=== PATIENT | female | born 1965 | race Caucasian/White ===

== ENCOUNTER 2019-09-01 18:12 | Inpatient (IN) | payer MEDICARE, MEDICAID ==
[2019-09-01 22:26] VITALS: BP 145/83
[2019-09-01] MEDS ORDERED: Magnesium Hydroxide (MOM) 30 mL UDC PO PRN (22:48)
[2019-09-01] MEDS ORDERED: Maalox 30 mL Cup PO PRN (22:48)
[2019-09-01] MEDS ORDERED: Guaifenesin/Dextromethorphan 100mg-10mg/5mL Sugar Free 118mL Bottle PO PRN (23:49)
[2019-09-01] MEDS ORDERED: Promethazine DM 6.25/15mg-5mL 5 ML SYR PO PRN (23:49)
[2019-09-02] MEDS: Multivitamin Tab PO SCH (08:23)
[2019-09-02] MEDS: Pantoprazole 40 mg EC Tab PO SCH (08:23)
--- NOTE | 2019-09-02 11:02 | History and Physical ---
History of Present Illness - HPI Chief Complaint: 53 y/o female patient was brought into ER for medical clearance. HPI: 53 y/o female patient was admitted in [facility] for medical clearance. Patient complains of having severe pain of lower back and buttocks after recent fall onto cement. Patient has history of Hypertension and Mentally disability. Patient had an ER consult and a complete workup was done. Chest x-ray was performed which showed Cardiomegaly. Patient was cleared for admission to [facility]. Patient was diagnosed with S/p fall, Severe lower back pain, Buttock pain, Cardiomegaly, Mentally challenged and history of Hypertension. Patient will have a Psych consult. I will also follow, treat and monitor patient. Patient will continue current treatment plan as ordered. Vital Signs: Last Vital Signs Temp 97.8 F 09/02/19 05:34 Pulse 91 09/02/19 05:34 Resp 20 09/02/19 05:34 BP 132/72 09/02/19 05:34 Pulse Ox 93 09/02/19 05:34 Past Medical History Cardiovascular: Report: HTN Pulmonary: Report: No Pertinent Hx RECREATION SUPERVISOR: Report: No Pertinent Hx GI: Report: No Pertinent Hx Psych: Report: Other (Mentally challenged.) Musculoskeletal: Report: Low Back Pain Rheumatologic: Report: No pertinent Hx Infectious Disease: Report: No Pertinent Hx Renal/: Report: No Pertinent Hx Endocrine: Report: No Pertinent Hx. Denies: Hyperparathyroidism Dermatology: Report: No Pertinent Hx - Past Surgical History Past Surgical History: No pertinent Hx Family Medical History - Family Member Mother History Unknown: Yes Ethnicity: Unknown Living Status: Unknown Hx Family Cancer: (unknown) Hx Family Coronary Artery Disease: (unknown) Hx Family Congestive Heart Failure: (unknown) Hx Family Hypertension: ([place]) Hx Family Stroke: (unknown) Hx Family Diabetes: (unknown) Hx Family Seizures: (unknown) Hx Family Dementia: (unknown) Hx Family AIDS: (unknown) Hx Family HIV: No Social History Smoke: No Alcohol: None Drugs: None Lives: Correction Domestic Violence: Negative Health Maintenance Health Maintenance: Other (please see chart.) - Medications Home Medications: Home Medication Medication Instructions Recorded Type Albuterol [Ventolin] 90 mcg INH Q4HR PRN 09/01/19 History Docusate Sodium [Stool Softener] 250 mg PO BID 09/01/19 History Guaifenesin/Dextromethorphan 10 ml PO Q4HR PRN 09/01/19 History [Robafen Dm Cough Liquid] Ibuprofen 600 mg PO TID PRN 09/01/19 History Loperamide [Imodium] 2 mg PO TID 09/01/19 History Loratadine 10 mg PO DAILY 09/01/19 History Ondansetron [Ondansetron Odt] 8 mg PO Q6H PRN 09/01/19 History Oxybutynin Chloride [Ditropan*] 5 mg PO BID 09/01/19 History Pantoprazole Sodium 40 mg PO DAILY 09/01/19 History Prochlorperazine Maleate 5 mg PO TID PRN 09/01/19 History Promethazine DM 6.25/15mg-5mL 5 ml PO QID PRN 09/01/19 History [Phenergan DM 6.25/15mg-5 mL] Pseudoephedrine HCl [Sudogest] 630 mg PO TID PRN 09/01/19 History QUEtiapine Fumarate [SEROquel] 200 mg PO BID 09/01/19 History Sertraline HCl [Zoloft] 100 mg PO DAILY 09/01/19 History Simvastatin [Zocor*] 20 mg PO QPM 09/01/19 History Umeclidinium Brm/Vilanterol Tr 1 puff IH DAILY 09/01/19 History [Anoro Ellipta 62.5-25 Mcg INH] traZODone HCl [Desyrel*] 50 mg PO HS 09/01/19 History Other Medications: Patient complains of severe lower back pain and buttock pain. - Allergies Allergies/Adverse Reactions: Allergies Allergy/AdvReac Type Severity Reaction Status Date / Time No Known Allergies Allergy Verified 09/01/19 22:25 Review of Systems - Review of Systems Review of Systems: Patient is mentally challenged. Constitutional: Report: No Significant Eyes: Report: No Significant ENT: Report: No Significant Respiratory: Report: No Significant Cardiovascular: Report: No Significant Gastrointestinal: Report: No Significant Genitourinary: Report: No Significant Musculoskeletal: Report: Back Pain Skin: Report: No Significant Neurological: Report: Confusion Physical Exam - Physical Exam HEENT: Report: Ears Nose Throat within normal limits Neck: Report: Within normal limits Cardiovascular Systems: Report: +s1/s2 noted Respiratory: Report: Breath Sounds are within normal limits Abdomen: Report: Non-tender to palpation Back: Report: Other Extremities: Report: Non-tender to palpation. Skin: Report: Color of skin is within normal limits Neuro/Psych: Report: Depressed affect - Lab Results All Lab Results last 24 hours: Please see orders. - Assessment Assessment: Mentally challenged. S/p fall. Severe Lower back pain. Buttock pain. Cardiomegaly. History of Hypertension. - Plan Plan: Continuation of care. Psych consult requested. Monitor vitals, Labs, X-rays. Continue present meds as directed. Monitor diet/nutritional support. Supportive care. Pain management. Fall precaution. Continue current treatment plan as ordered.
[2019-09-02] MEDS ORDERED: Albuterol Nebulizer 2.5mg/3mL HHN PRN (14:57)
--- NOTE | 2019-09-02 16:02 | History & Physical ---
ADMIT DATE: 09/02/2019 CHIEF COMPLAINT: Transferred from [facility] for Geropsych admission. HISTORY OF PRESENT ILLNESS: This is a 53-year-old female who was medically cleared at [facility], who is brought in here to the Geropsych Unit due to compulsiveness and hallucination. PAST MEDICAL HISTORY: Asthma, hyperlipidemia. ALLERGIES: No drug allergies. HOME MEDICATIONS: See medication list. SOCIAL HISTORY: Denies any alcohol, illicit drug usage. REVIEW OF SYSTEMS: GENERAL: Denies any fever or chills. CARDIOVASCULAR: Denies chest pain. RESPIRATORY: Denies shortness of breath. GASTROINTESTINAL: Denies nausea, vomiting, abdominal pain. GENITOURINARY: Denies increased frequency. NEUROLOGIC: Denies seizures or syncope. All systems reviewed and negative. PHYSICAL EXAMINATION: EXTREMITIES: The patient is well-developed, well-nourished, in no apparent distress. VITAL SIGNS: Temperature 97.8, heart rate 91, blood pressure 132/72, respirations 20, O2 is ____. HEENT: Head normocephalic, atraumatic. NECK: Supple. No mass. LUNGS: Clear bilaterally. HEART: Regular rate and rhythm. ABDOMEN: Soft, nontender. ASSESSMENT: Asthma, hyperlipidemia, schizoaffective disorder, obsessive-compulsive disorder, depression. PLAN: We will continue the patient's home medications. Fall precautions have been initiated. We will continue to monitor this patient. JOB# [id number]
--- NOTE | 2019-09-03 05:28 | Psychiatric Evaluation ---
DATE OF SERVICE: 09/01/2019 IDENTIFYING DATA: The patient is a 53-year-old woman, resident [facility]. Information obtained by directly interviewing the patient as well as reviewing the admission papers. JUSTIFICATION FOR HOSPITALIZATION: The patient is admitted here on a voluntary basis in view of her acute agitation and aggressive behavior. The patient is reported to have been very defiant and has been defecating on the floor and has been becoming difficult for her to be redirected. The patient has been admitted over here for stabilization. Prior to the hospitalization, the patient is reported to have been on the following medications, the patient has been getting the trazodone 50 mg at bedtime, sertraline 100 mg in the morning and Seroquel 200 mg b.i.d., even with all the medications the patient has been having difficult time. The patient during the interview has been cooperative, but is not able to provide much information. The patient appears to be intellectually challenged. PAST PSYCHIATRIC HISTORY: Details are not known. MEDICAL HISTORY: Physical examination is requested by Dr. Phillips. SUBSTANCE ABUSE HISTORY: None. PHYSICAL OR SEXUAL ABUSE HISTORY: None. LEGAL PROBLEMS: None at this time. STRENGTH AND ASSETS: The patient is motivated. MENTAL STATUS EXAMINATION: The patient is a 53-year-old moderately obese, superficially cooperative. Eye contact is fleeting. Mood is noted to be irritable. Affect is constricted. The patient has paranoia, but denies any command hallucinations. Insight and judgment at this time are noted to be very much impaired. Impulse control is noted to be limited. The patient is reported to have been presenting with aggressive behavior. Attention span and concentration are noted to be fair at this time. Short term memory is noted to be poor. Long-term memory seems to be fair. The patient appears to be of below average intelligence. The patient's answers most of the time are concrete. The patient is very impulsive and behavior is a danger to others and self in view of her aggressive behavior. DIAGNOSTIC IMPRESSION: AXIS I: ____ unspecified psychosis, not due to substance abuse or physiological condition. AXIS II: None. AXIS III: As per Dr. Phillips. IMMEDIATE TREATMENT PLAN: The patient is going to be continued on her medications and closely monitored. ____ reported individual and family counseling. Once stabilized, the patient is going to be discharged to [facility] to be followed up on an outpatient basis. [facility]# [id number]
[2019-09-03] MEDS: Pantoprazole 40 mg EC Tab PO SCH (08:32)
[2019-09-03] MEDS: Multivitamin Tab PO SCH (08:34)
--- NOTE | 2019-09-03 10:38 | Progress Notes ---
DATE: 09/03/2019 SUBJECTIVE: The patient was seen in her room. The patient is eating breakfast, appears to be guarded, easily gets frustrated, episodes of agitation and aggressive behavior, otherwise the patient is in no acute distress. OBJECTIVE: VITAL SIGNS: Temperature 97.4, heart rate 70, blood pressure 132/65, respirations 20, 95% on room air. HEENT: Head is atraumatic and normocephalic. Eyes; bilateral conjunctivae are clear. Bilateral pupils are equally round and reactive. NECK: Supple. No JVD. CARDIOVASCULAR: S1 and S2, without murmur. PULMONARY: Clear to auscultation. GASTROINTESTINAL: Soft and nontender without guarding. Positive bowel sounds. MUSCULOSKELETAL: No clubbing. No cyanosis noted. ASSESSMENT: 1. Psychosis. 2. Hyperlipidemia. 3. Asthma. PLAN: We will continue to keep the patient to inpatient psychiatric unit. We will follow up with a psychiatrist to monitor the patient's condition and behavior. We will put the patient for precaution. Treatment plans were discussed with the patient's nurse. Treatment plans were discussed with Dr. Phillips. JOB# [id number]
--- NOTE | 2019-09-03 15:44 | Internal Medicine Prog Note ---
Internal Medicine Subjective - Subjective Service Date: 09/03/19 Patient seen and examined:: with staff Patient is:: awake, verbal, agitated, confused Patient Complaints of:: other (Mentally challenged.) Per staff patient has:: no adverse event, no episodes of fall Internal Medicine Objective - Physical Exam Vitals and I&O: Vital Signs Temp 97.9 F 09/03/19 14:00 Pulse 106 09/03/19 14:00 Resp 18 09/03/19 14:00 BP 122/82 09/03/19 14:00 Pulse Ox 95 09/03/19 14:00 Intake & Output 09/02/19 09/03/19 09/03/19 18:59 06:59 18:59 Intake Total 1000 240 Balance 1000 240 Intake: Oral 1000 240 Other: # Voids 4 2 # Bowel Movements 2 2 Stool Characteristics Soft Soft Active Medications: Current Medications Acetaminophen (Tylenol) 650 mg PO Q4HR PRN PRN Reason: Mild Pain (Scale 1-3) Stop: 10/31/19 22:47 Acetaminophen (Tylenol) 650 mg PO Q4H PRN PRN Reason: TEMP ABOVE 100 Stop: 11/01/19 09:21 Al Hydrox/Mg Hydrox/Simethicone (Maalox) 30 ml PO Q4HR PRN PRN Reason: GI DISTRESS Stop: 10/31/19 22:47 Albuterol Sulfate (Albuterol 2.5mg/3ml Neb Ud) 2.5 mg HHN Q4H PRN PRN Reason: Wheezing Stop: 11/01/19 14:56 Docusate Sodium (Colace) 250 mg PO BID [facility] Stop: 11/01/19 08:59 Last Admin: 09/03/19 08:32 Dose: 250 mg Guaifenesin/Dextromethorphan (Diabetic Tussin Dm Sugar Free) 10 ml PO Q4HR PRN PRN Reason: Congestion Stop: 10/31/19 23:48 Ibuprofen (Motrin) 600 mg PO TID PRN PRN Reason: BODY ACHES AND HEADACHES Stop: 10/31/19 22:59 Last Admin: 09/03/19 08:34 Dose: 600 mg Loperamide HCl (Imodium) 2 mg PO TID PRN PRN Reason: diarrhea Stop: 11/01/19 05:30 Loratadine (Claritin) 10 mg PO DAILY [facility] Stop: 11/01/19 08:59 Last Admin: 09/03/19 08:36 Dose: 10 mg Lorazepam (Ativan) 0.5 mg PO Q4HR PRN; Protocol PRN Reason: Anxiety Stop: 10/01/19 22:47 Magnesium Hydroxide (Milk Of Magnesia) 30 ml PO HS PRN PRN Reason: Constipation Multivitamins/Vitamin C (Theragran) 1 tab PO DAILY [facility]I Stop: 11/01/19 08:59 Last Admin: 09/03/19 08:34 Dose: 1 tab Ondansetron HCl (Zofran Odt) 8 mg PO Q6H PRN PRN Reason: IF COMPAZINE INEFFECTIVE Oxybutynin Chloride (Ditropan) 5 mg PO BID [facility] Stop: 11/01/19 08:59 Last Admin: 09/03/19 08:34 Dose: 5 mg Pantoprazole Sodium (Protonix) 40 mg PO QDAC [facility] Stop: 11/01/19 07:29 Last Admin: 09/03/19 08:32 Dose: 40 mg Prochlorperazine Maleate (Compazine) 5 mg PO TID PRN PRN Reason: Nausea / Vomiting Promethazine HCl/Dextromethorphan (Phenergan Dm 6.25/15mg-5 Ml) 5 ml PO QID PRN PRN Reason: Cough Stop: 10/31/19 23:48 Pseudoephedrine HCl (Sudafed) 30 mg PO TID PRN PRN Reason: Cold Symptons (nasal congest.) Quetiapine Fumarate (Seroquel) 200 mg PO BID Y[facility]I; Protocol Stop: 11/01/19 08:59 Last Admin: 09/03/19 11:29 Dose: Not Given Simvastatin (Zocor) 20 mg PO QPM Y[facility]I; Protocol Stop: 11/01/19 16:59 Last Admin: 09/02/19 16:22 Dose: 20 mg Trazodone HCl (Desyrel) 50 mg PO HS Y[facility]INI; Protocol Stop: 11/01/19 20:59 Zolpidem Tartrate (Ambien) 5 mg PO HS PRN PRN Reason: Insomnia Stop: 10/31/19 22:47 Physical Exam: Patient is awake, easily frustrated, irritable, has obsessive-compulsive behavior. General: demented HEENT: NC/AT, PERRLA Neck: Supple Lungs: CTAB Cardiovascular: RRR, Normal S1 Abdomen: soft, non-tender Extremities: clear Neurological: no change, disorganized Internal Medicine Assmt/Plan - Assessment Assessment: Mentally challenged. S/p fall. Severe Lower back pain. Buttock pain. Cardiomegaly. History of Hypertension. - Plan Plan: Continuation of care. Psych consult requested. Monitor vitals, Labs, X-rays. Continue present meds as directed. Monitor diet/nutritional support. Supportive care. Pain management. Fall precaution. Continue current treatment plan as ordered. Nutritional Asmnt/Malnutr-PDOC - Dietary Evaluation Malnutrition Findings (Please click <Entered> for more info): Nutritional Asmnt/Malnutrition Start: 09/03/19 12: 44 Text: Status: Complete Freq: Protocol: Document 09/03/19 12:44 [email or web address] (Rec: 09/03/19 13:11 [email or web address]- [id number]) Nutritional Asmnt/Malnutrition Patient General Information Nutritional Screening Moderate Risk Diagnosis Psychosis Pertinent Medical Hx/Surgical Hx Asthma, hyperlipidemia Subjective Information Patient in dining room at time of visit. Tolerating current diet order with adequate intake. Current Diet Order/ Nutrition Support Cardiac, Chopped Patient / S.O Not Indicated Pertinent Medications maalox, colace, imodium, MOM, Theragran, zofran, protonix, phenergan Pertinent Labs (09/01) albumin 3.5 Nutritional Hx/Data Height 1.6 m Height (Calculated Centimeters) 160.0 Current Weight (lbs) 84.822 kg Weight (Calculated Kilograms) 84.8 Weight (Calculated Grams) 07635.8 [place] Body Weight 115 % [place] Body Weight 162 Body Mass Index (BMI) 33.1 Recent Weight Change No Weight Status Obese GI Symptoms GI Symptoms None Last BM 09/03x 2 Difficult in: None Food Allergies No Cultural/Ethnic/Judaism Belief none indicated Usual diet at home unknown Skin Integrity/Comment: Chris 16, superficial laceration.lateral scratches to lower back. Current %PO Good (75-100%) Estimated Nutritional Goals BEE in Kcals: Adj wt of IBW Calories/Kcals/Kg 60.4kg 25-30 kcal/kg Kcals Calculated ~1776-9717 kcal/day Protein: Adj wt of IBW Protein g/kg: (1gm/kg) Protein Calculated ~60 gm/day Fluid: ml ~7921-1300 ml/day (1 ml/kcal) Nutritional Problem No current Nutrition Prob Problem No nutrition diagnosis at this time Intervention/Recommendation Comments 1. Continue Cardiac chopped diet as tolerated by patient. Expected Outcomes/Goals Expected Outcomes/Goals Oral intake >75% ofmeals, weight stable, nutrition related labs WNL F/U LR 09/10-
--- NOTE | 2019-09-03 23:22 | Progress Notes ---
DATE: 09/03/2019 PSYCHIATRIC PROGRESS NOTE SUBJECTIVE: Staff was spoken to. The patient is interviewed. Mood is noted to be irritable. Affect is constricted. The patient is screaming and yelling, not making much sense. The patient has been closely monitored at this time and the patient has been on Seroquel 400 mg a day and the patient has been able to tolerate the medications. No other side effects to the medications are noted. However, the patient is very demanding and when she does not get her way, she is screaming and yelling. The patient has paranoid delusions, but no command hallucinations are noted. ASSESSMENT: The patient is still psychotic. PLAN: To continue the patient with the Seroquel and followup. JOB# [id number]
[2019-09-04] MEDS: Multivitamin Tab PO SCH (08:13)
[2019-09-04] MEDS: Pantoprazole 40 mg EC Tab PO SCH (08:13)
--- NOTE | 2019-09-04 13:39 | Internal Medicine Prog Note ---
Internal Medicine Subjective - Subjective Service Date: 09/04/19 Patient seen and examined:: with staff Patient is:: awake, verbal, agitated, confused Patient Complaints of:: other (Mentally challenged.) Per staff patient has:: no adverse event, no episodes of fall Internal Medicine Objective - Physical Exam Vitals and I&O: Vital Signs Temp 97.7 F 09/04/19 06:56 Pulse 92 09/04/19 06:56 Resp 18 09/04/19 06:56 BP 129/63 09/04/19 06:56 Pulse Ox 98 09/04/19 06:56 Intake & Output 09/03/19 09/04/19 09/04/19 18:59 06:59 18:59 Intake Total 1300 120 Balance 1300 120 Intake: Oral 1300 120 Other: # Voids 3 1 # Bowel Movements 1 0 Stool Characteristics Soft Soft Soft Active Medications: Current Medications Acetaminophen (Tylenol) 650 mg PO Q4HR PRN PRN Reason: Mild Pain (Scale 1-3) Stop: 10/31/19 22:47 Acetaminophen (Tylenol) 650 mg PO Q4H PRN PRN Reason: TEMP ABOVE 100 Stop: 11/01/19 09:21 Al Hydrox/Mg Hydrox/Simethicone (Maalox) 30 ml PO Q4HR PRN PRN Reason: GI DISTRESS Stop: 10/31/19 22:47 Albuterol Sulfate (Albuterol 2.5mg/3ml Neb Ud) 2.5 mg HHN Q4H PRN PRN Reason: Wheezing Stop: 11/01/19 14:56 Docusate Sodium (Colace) 250 mg PO BID [facility] Stop: 11/01/19 08:59 Last Admin: 09/04/19 08:12 Dose: 250 mg Guaifenesin/Dextromethorphan (Diabetic Tussin Dm Sugar Free) 10 ml PO Q4HR PRN PRN Reason: Congestion Stop: 10/31/19 23:48 Ibuprofen (Motrin) 600 mg PO TID PRN PRN Reason: BODY ACHES AND HEADACHES Stop: 10/31/19 22:59 Last Admin: 09/04/19 11:06 Dose: 600 mg Loperamide HCl (Imodium) 2 mg PO TID PRN PRN Reason: diarrhea Stop: 11/01/19 05:30 Loratadine (Claritin) 10 mg PO DAILY [facility] Stop: 11/01/19 08:59 Last Admin: 09/04/19 08:13 Dose: 10 mg Lorazepam (Ativan) 0.5 mg PO Q4HR PRN; Protocol PRN Reason: Anxiety Stop: 10/01/19 22:47 Magnesium Hydroxide (Milk Of Magnesia) 30 ml PO HS PRN PRN Reason: Constipation Multivitamins/Vitamin C (Theragran) 1 tab PO DAILY [facility] Stop: 11/01/19 08:59 Last Admin: 09/04/19 08:13 Dose: 1 tab Ondansetron HCl (Zofran Odt) 8 mg PO Q6H PRN PRN Reason: IF COMPAZINE INEFFECTIVE Oxybutynin Chloride (Ditropan) 5 mg PO BID [facility] Stop: 11/01/19 08:59 Last Admin: 09/04/19 08:12 Dose: 5 mg Pantoprazole Sodium (Protonix) 40 mg PO QDAC [facility] Stop: 11/01/19 07:29 Last Admin: 09/04/19 08:13 Dose: 40 mg Prochlorperazine Maleate (Compazine) 5 mg PO TID PRN PRN Reason: Nausea / Vomiting Promethazine HCl/Dextromethorphan (Phenergan Dm 6.25/15mg-5 Ml) 5 ml PO QID PRN PRN Reason: Cough Stop: 10/31/19 23:48 Pseudoephedrine HCl (Sudafed) 30 mg PO TID PRN PRN Reason: Cold Symptons (nasal congest.) Quetiapine Fumarate (Seroquel) 200 mg PO BID [facility]; Protocol Stop: 11/01/19 08:59 Last Admin: 09/04/19 08:13 Dose: 200 mg Simvastatin (Zocor) 20 mg PO QPM [facility]I; Protocol Stop: 11/01/19 16:59 Last Admin: 09/03/19 16:54 Dose: 20 mg Trazodone HCl (Desyrel) 50 mg PO HS [facility]; Protocol Stop: 11/01/19 20:59 Last Admin: 09/03/19 21:00 Dose: 50 mg Zolpidem Tartrate (Ambien) 5 mg PO HS PRN PRN Reason: Insomnia Stop: 10/31/19 22:47 Physical Exam: Patient is still having behavioral outbursts, very paranoid and irritable. General: demented HEENT: NC/AT, PERRLA Neck: Supple Lungs: CTAB Cardiovascular: RRR, Normal S1 Abdomen: soft, non-tender Extremities: clear Neurological: no change, disorganized Internal Medicine Assmt/Plan - Assessment Assessment: Mentally challenged. S/p fall. Severe Lower back pain. Buttock pain. Cardiomegaly. History of Hypertension. - Plan Plan: Continuation of care. Psych consult requested. Monitor vitals, Labs, X-rays. Continue present meds as directed. Monitor diet/nutritional support. Supportive care. Pain management. Fall precaution. Continue current treatment plan as ordered. Nutritional Asmnt/Malnutr-PDOC - Dietary Evaluation Malnutrition Findings (Please click <Entered> for more info): Nutritional Asmnt/Malnutrition Start: 09/03/19 12: 44 Text: Status: Complete Freq: Protocol: Document 09/03/19 12:44 [email or web address] (Rec: 09/03/19 13:11 [email or web address] [email or web address]- [email or web address]) Nutritional Asmnt/Malnutrition Patient General Information Nutritional Screening Moderate Risk Diagnosis Psychosis Pertinent Medical Hx/Surgical Hx Asthma, hyperlipidemia Subjective Information Patient in dining room at time of visit. Tolerating current diet order with adequate intake. Current Diet Order/ Nutrition Support Cardiac, Chopped Patient / S.O Not Indicated Pertinent Medications maalox, colace, imodium, MOM, Theragran, zofran, protonix, phenergan Pertinent Labs (09/01) albumin 3.5 Nutritional Hx/Data Height 1.6 m Height (Calculated Centimeters) 160.0 Current Weight (lbs) 84.822 kg Weight (Calculated Kilograms) 84.8 Weight (Calculated Grams) 93560.8 [place] Body Weight 115 % [place] Body Weight 162 Body Mass Index (BMI) 33.1 Recent Weight Change No Weight Status Obese GI Symptoms GI Symptoms None Last BM 09/03x 2 Difficult in: None Food Allergies No Cultural/Ethnic/[place]ybeterian Belief none indicated Usual diet at home unknown Skin Integrity/Comment: Chris 16, superficial laceration.lateral scratches to lower back. Current %PO Good (75-100%) Estimated Nutritional Goals BEE in Kcals: Adj wt of IBW Calories/Kcals/Kg 60.4kg 25-30 kcal/kg Kcals Calculated ~8320-8176 kcal/day Protein: Adj wt of IBW Protein g/kg: (1gm/kg) Protein Calculated ~60 gm/day Fluid: ml ~3062-5558 ml/day (1 ml/kcal) Nutritional Problem No current Nutrition Prob Problem No nutrition diagnosis at this time Intervention/Recommendation Comments 1. Continue Cardiac chopped diet as tolerated by patient. Expected Outcomes/Goals Expected Outcomes/Goals Oral intake >75% ofmeals, weight stable, nutrition related labs WNL F/U LR 09/10-
--- NOTE | 2019-09-05 03:03 | Progress Notes ---
DATE: 09/04/2019 PSYCHIATRIC PROGRESS NOTE SUBJECTIVE: Staff was spoken to. The patient is interviewed. Mood is noted to be irritable. Affect is constricted. The patient has been screaming and yelling. The patient has no insight into her illness. The patient needs to be redirected. The patient's sleep is noted to be fair and appetite is noted to be poor. ASSESSMENT: The patient is still psychotic. PLAN: To continue the patient with the supportive therapy and followup. JOB# [id number]
[2019-09-05] MEDS: Multivitamin Tab PO SCH (08:24)
[2019-09-05] MEDS: Pantoprazole 40 mg EC Tab PO SCH (08:25)
--- NOTE | 2019-09-05 10:55 | Internal Medicine Prog Note ---
Internal Medicine Subjective - Subjective Service Date: 09/05/19 Patient seen and examined:: with staff Patient is:: awake, verbal, agitated, confused Patient Complaints of:: other (Mentally challenged.) Per staff patient has:: no adverse event, no episodes of fall Internal Medicine Objective - Physical Exam Vitals and I&O: Vital Signs Temp 97.8 F 09/05/19 06:48 Pulse 60 09/05/19 06:48 Resp 18 09/05/19 06:48 BP 105/70 09/05/19 06:48 Pulse Ox 97 09/05/19 06:48 Intake & Output 09/04/19 09/05/19 09/05/19 18:59 06:59 18:59 Intake Total 1250 120 Balance 1250 120 Intake: Oral 1250 120 Other: # Voids 3 Stool Characteristics Soft Soft Active Medications: Current Medications Acetaminophen (Tylenol) 650 mg PO Q4HR PRN PRN Reason: Mild Pain (Scale 1-3) Stop: 10/31/19 22:47 Acetaminophen (Tylenol) 650 mg PO Q4H PRN PRN Reason: TEMP ABOVE 100 Stop: 11/01/19 09:21 Al Hydrox/Mg Hydrox/Simethicone (Maalox) 30 ml PO Q4HR PRN PRN Reason: GI DISTRESS Stop: 10/31/19 22:47 Albuterol Sulfate (Albuterol 2.5mg/3ml Neb Ud) 2.5 mg HHN Q4H PRN PRN Reason: Wheezing Stop: 11/01/19 14:56 Docusate Sodium (Colace) 250 mg PO BID [facility] Stop: 11/01/19 08:59 Last Admin: 09/05/19 08:25 Dose: 250 mg Guaifenesin/Dextromethorphan (Diabetic Tussin Dm Sugar Free) 10 ml PO Q4HR PRN PRN Reason: Congestion Stop: 10/31/19 23:48 Ibuprofen (Motrin) 600 mg PO TID PRN PRN Reason: BODY ACHES AND HEADACHES Stop: 10/31/19 22:59 Last Admin: 09/05/19 01:21 Dose: 600 mg Loperamide HCl (Imodium) 2 mg PO TID PRN PRN Reason: diarrhea Stop: 11/01/19 05:30 Loratadine (Claritin) 10 mg PO DAILY [facility] Stop: 11/01/19 08:59 Last Admin: 09/05/19 08:26 Dose: 10 mg Lorazepam (Ativan) 0.5 mg PO Q4HR PRN; Protocol PRN Reason: Anxiety Stop: 10/01/19 22:47 Magnesium Hydroxide (Milk Of Magnesia) 30 ml PO HS PRN PRN Reason: Constipation Multivitamins/Vitamin C (Theragran) 1 tab PO DAILY [facility] Stop: 11/01/19 08:59 Last Admin: 09/05/19 08:24 Dose: 1 tab Ondansetron HCl (Zofran Odt) 8 mg PO Q6H PRN PRN Reason: IF COMPAZINE INEFFECTIVE Oxybutynin Chloride (Ditropan) 5 mg PO BID [facility] Stop: 11/01/19 08:59 Last Admin: 09/05/19 08:25 Dose: 5 mg Pantoprazole Sodium (Protonix) 40 mg PO QDAC [facility] Stop: 11/01/19 07:29 Last Admin: 09/05/19 08:25 Dose: 40 mg Prochlorperazine Maleate (Compazine) 5 mg PO TID PRN PRN Reason: Nausea / Vomiting Promethazine HCl/Dextromethorphan (Phenergan Dm 6.25/15mg-5 Ml) 5 ml PO QID PRN PRN Reason: Cough Stop: 10/31/19 23:48 Pseudoephedrine HCl (Sudafed) 30 mg PO TID PRN PRN Reason: Cold Symptons (nasal congest.) Quetiapine Fumarate (Seroquel) 200 mg PO BID [facility]; Protocol Stop: 11/01/19 08:59 Last Admin: 09/05/19 08:25 Dose: 200 mg Simvastatin (Zocor) 20 mg PO QPM [facility]; Protocol Stop: 11/01/19 16:59 Last Admin: 09/04/19 17:47 Dose: 20 mg Trazodone HCl (Desyrel) 50 mg PO HS [facility]; Protocol Stop: 11/01/19 20:59 Last Admin: 09/04/19 21:46 Dose: 50 mg Zolpidem Tartrate (Ambien) 5 mg PO HS PRN PRN Reason: Insomnia Stop: 10/31/19 22:47 Physical Exam: Patient is still hostile and has been having behavioral outbursts, remains psychotic and needs monitoring, may be danger to others. General: demented HEENT: NC/AT, PERRLA Neck: Supple Lungs: CTAB Cardiovascular: RRR, Normal S1 Abdomen: soft, non-tender Extremities: clear Neurological: no change, disorganized Internal Medicine Assmt/Plan - Assessment Assessment: Mentally challenged. S/p fall. Severe Lower back pain. Buttock pain. Cardiomegaly. History of Hypertension. - Plan Plan: Continuation of care. Psych consult requested. Monitor vitals, Labs, X-rays. Continue present meds as directed. Monitor diet/nutritional support. Supportive care. Pain management. Fall precaution. Continue current treatment plan as ordered. Nutritional Asmnt/Malnutr-PDOC - Dietary Evaluation Malnutrition Findings (Please click <Entered> for more info): Nutritional Asmnt/Malnutrition Start: 09/03/19 12: 44 Text: Status: Complete Freq: Protocol: Document 09/03/19 12:44 BOBBY (Rec: 09/03/19 13:11 BOBBY [email or web address]) Nutritional Asmnt/Malnutrition Patient General Information Nutritional Screening Moderate Risk Diagnosis Psychosis Pertinent Medical Hx/Surgical Hx Asthma, hyperlipidemia Subjective Information Patient in dining room at time of visit. Tolerating current diet order with adequate intake. Current Diet Order/ Nutrition Support Cardiac, Chopped Patient / S.O Not Indicated Pertinent Medications maalox, colace, imodium, MOM, Theragran, zofran, protonix, phenergan Pertinent Labs (09/01) albumin 3.5 Nutritional Hx/Data Height 1.6 m Height (Calculated Centimeters) 160.0 Current Weight (lbs) 84.822 kg Weight (Calculated Kilograms) 84.8 Weight (Calculated Grams) 40902.8 [place] Body Weight 115 % [place] Body Weight 162 Body Mass Index (BMI) 33.1 Recent Weight Change No Weight Status Obese GI Symptoms GI Symptoms None Last BM 09/03x 2 Difficult in: None Food Allergies No Cultural/Ethnic/Mandaen Belief none indicated Usual diet at home unknown Skin Integrity/Comment: Chris 16, superficial laceration.lateral scratches to lower back. Current %PO Good (75-100%) Estimated Nutritional Goals BEE in Kcals: Adj wt of IBW Calories/Kcals/Kg 60.4kg 25-30 kcal/kg Kcals Calculated ~4094-7615 kcal/day Protein: Adj wt of IBW Protein g/kg: (1gm/kg) Protein Calculated ~60 gm/day Fluid: ml ~3820-9158 ml/day (1 ml/kcal) Nutritional Problem No current Nutrition Prob Problem No nutrition diagnosis at this time Intervention/Recommendation Comments 1. Continue Cardiac chopped diet as tolerated by patient. Expected Outcomes/Goals Expected Outcomes/Goals Oral intake >75% ofmeals, weight stable, nutrition related labs WNL F/U LR
--- NOTE | 2019-09-05 22:19 | Progress Notes ---
DATE: 09/05/2019 PSYCHIATRIC PROGRESS NOTE SUBJECTIVE: Staff was spoken to. The patient is interviewed. Mood is noted to be irritable. Affect is constricted. Insight and judgment are noted to be still impaired. Impulse control is noted to be poor. The patient is screaming and yelling. The patient has been taken off of the Zoloft yesterday. The patient is currently on the Seroquel and has been able to tolerate the medication. ASSESSMENT: The patient is still impulsive and not able to contract for safety and hence she is not ready to be discharged to a lower level of care. JOB# [id number]
[2019-09-06] MEDS: Pantoprazole 40 mg EC Tab PO SCH (06:38)
[2019-09-06] MEDS: Multivitamin Tab PO SCH (08:53)
--- NOTE | 2019-09-06 14:38 | Internal Medicine Prog Note ---
Internal Medicine Subjective - Subjective Service Date: 09/06/19 Patient is:: awake, verbal, agitated, confused Patient Complaints of:: other (Mentally challenged.) Per staff patient has:: no adverse event, no episodes of fall Internal Medicine Objective - Physical Exam Vitals and I&O: Vital Signs Temp 97.6 F 09/06/19 06:24 Pulse 71 09/06/19 06:24 Resp 15 09/06/19 08:00 BP 118/68 09/06/19 06:24 Pulse Ox 91 09/06/19 06:24 Intake & Output 09/05/19 09/06/19 09/06/19 18:59 06:59 18:59 Intake Total 1490 Balance 1490 Intake: Oral 1490 Other: # Voids 2 # Bowel Movements 0 Stool Characteristics Soft Soft Soft Active Medications: Current Medications Acetaminophen (Tylenol) 650 mg PO Q4HR PRN PRN Reason: Mild Pain (Scale 1-3) Stop: 10/31/19 22:47 Acetaminophen (Tylenol) 650 mg PO Q4H PRN PRN Reason: TEMP ABOVE 100 Stop: 11/01/19 09:21 Al Hydrox/Mg Hydrox/Simethicone (Maalox) 30 ml PO Q4HR PRN PRN Reason: GI DISTRESS Stop: 10/31/19 22:47 Albuterol Sulfate (Albuterol 2.5mg/3ml Neb Ud) 2.5 mg HHN Q4H PRN PRN Reason: Wheezing Stop: 11/01/19 14:56 Docusate Sodium (Colace) 250 mg PO BID [facility] Stop: 11/01/19 08:59 Last Admin: 09/06/19 08:53 Dose: 250 mg Guaifenesin/Dextromethorphan (Diabetic Tussin Dm Sugar Free) 10 ml PO Q4HR PRN PRN Reason: Congestion Stop: 10/31/19 23:48 Ibuprofen (Motrin) 600 mg PO TID PRN PRN Reason: BODY ACHES AND HEADACHES Stop: 10/31/19 22:59 Last Admin: 09/06/19 13:46 Dose: 600 mg Loperamide HCl (Imodium) 2 mg PO TID PRN PRN Reason: diarrhea Stop: 11/01/19 05:30 Loratadine (Claritin) 10 mg PO DAILY [facility] Stop: 11/01/19 08:59 Last Admin: 09/06/19 08:53 Dose: 10 mg Lorazepam (Ativan) 0.5 mg PO Q4HR PRN; Protocol PRN Reason: Anxiety Stop: 10/01/19 22:47 Magnesium Hydroxide (Milk Of Magnesia) 30 ml PO HS PRN PRN Reason: Constipation Multivitamins/Vitamin C (Theragran) 1 tab PO DAILY [facility] Stop: 11/01/19 08:59 Last Admin: 09/06/19 08:53 Dose: 1 tab Mupirocin (Bactroban Oint) 1 appl NS BID [facility] Stop: 09/10/19 17:01 Last Admin: 09/06/19 08:53 Dose: 1 appl Ondansetron HCl (Zofran Odt) 8 mg PO Q6H PRN PRN Reason: IF COMPAZINE INEFFECTIVE Oxybutynin Chloride (Ditropan) 5 mg PO BID [facility] Stop: 11/01/19 08:59 Last Admin: 09/06/19 08:53 Dose: 5 mg Pantoprazole Sodium (Protonix) 40 mg PO QDAC [facility] Stop: 11/01/19 07:29 Last Admin: 09/06/19 06:38 Dose: 40 mg Prochlorperazine Maleate (Compazine) 5 mg PO TID PRN PRN Reason: Nausea / Vomiting Promethazine HCl/Dextromethorphan (Phenergan Dm 6.25/15mg-5 Ml) 5 ml PO QID PRN PRN Reason: Cough Stop: 10/31/19 23:48 Pseudoephedrine HCl (Sudafed) 30 mg PO TID PRN PRN Reason: Cold Symptons (nasal congest.) Quetiapine Fumarate (Seroquel) 200 mg PO BID [facility]; Protocol Stop: 11/01/19 08:59 Last Admin: 09/06/19 08:53 Dose: 200 mg Simvastatin (Zocor) 20 mg PO QPM [facility]; Protocol Stop: 11/01/19 16:59 Last Admin: 09/05/19 18:26 Dose: 20 mg Trazodone HCl (Desyrel) 50 mg PO HS [facility]; Protocol Stop: 11/01/19 20:59 Last Admin: 09/05/19 20:40 Dose: 50 mg Zolpidem Tartrate (Ambien) 5 mg PO HS PRN PRN Reason: Insomnia Stop: 10/31/19 22:47 General: demented HEENT: NC/AT, PERRLA Neck: Supple Lungs: CTAB Cardiovascular: RRR, Normal S1 Abdomen: soft, non-tender Extremities: clear Neurological: no change, disorganized Internal Medicine Assmt/Plan - Assessment Assessment: Mentally challenged. S/p fall. Severe Lower back pain. Buttock pain. Cardiomegaly. History of Hypertension. - Plan Plan: Continuation of care. Psych consult requested. Monitor vitals, Labs, X-rays. Continue present meds as directed. Monitor diet/nutritional support. Supportive care. Pain management. Fall precaution. Continue current treatment plan as ordered. Nutritional Asmnt/Malnutr-PDOC - Dietary Evaluation Malnutrition Findings (Please click <Entered> for more info): Nutritional Asmnt/Malnutrition Start: 09/03/19 12: 44 Text: Status: Complete Freq: Protocol: Document 09/03/19 12:44 BOBBY (Rec: 09/03/19 13:11 BOBBY [email or web address]) Nutritional Asmnt/Malnutrition Patient General Information Nutritional Screening Moderate Risk Diagnosis Psychosis Pertinent Medical Hx/Surgical Hx Asthma, hyperlipidemia Subjective Information Patient in dining room at time of visit. Tolerating current diet order with adequate intake. Current Diet Order/ Nutrition Support Cardiac, Chopped Patient / S.O Not Indicated Pertinent Medications maalox, colace, imodium, MOM, Theragran, zofran, protonix, phenergan Pertinent Labs (09/01) albumin 3.5 Nutritional Hx/Data Height 5 ft 3 in Height (Calculated Centimeters) 160.0 Current Weight (lbs) 187 lb Weight (Calculated Kilograms) 84.8 Weight (Calculated Grams) 84945.8 [place] Body Weight 115 % [place] Body Weight 162 Body Mass Index (BMI) 33.1 Recent Weight Change No Weight Status Obese GI Symptoms GI Symptoms None Last BM 09/03x 2 Difficult in: None Food Allergies No Cultural/Ethnic/Adventism Belief none indicated Usual diet at home unknown Skin Integrity/Comment: Chris 16, superficial laceration.lateral scratches to lower back. Current %PO Good (75-100%) Estimated Nutritional Goals BEE in Kcals: Adj wt of IBW Calories/Kcals/Kg 60.4kg 25-30 kcal/kg Kcals Calculated ~8803-5736 kcal/day Protein: Adj wt of IBW Protein g/kg: (1gm/kg) Protein Calculated ~60 gm/day Fluid: ml ~7084-1736 ml/day (1 ml/kcal) Nutritional Problem No current Nutrition Prob Problem No nutrition diagnosis at this time Intervention/Recommendation Comments 1. Continue Cardiac chopped diet as tolerated by patient. Expected Outcomes/Goals Expected Outcomes/Goals Oral intake >75% ofmeals, weight stable, nutrition related labs WNL F/U LR 09/10-
--- NOTE | 2019-09-06 21:59 | Progress Notes ---
DATE: 09/06/2019 PSYCHIATRIC PROGRESS NOTE SUBJECTIVE: Staff was spoken to. The patient is interviewed. Mood is noted to be irritable. Affect is constricted. Insight and judgment are noted to be still impaired. Impulse control is noted to be limited. The patient is screaming and yelling when she does not get her way. The patient's sleep is noted to be poor. Appetite is noted to be improving. No side effects to the medications are noted. The patient's impulsivity is a major concern. The patient is still very paranoid. No other cognitive deficits are noted. ASSESSMENT: The patient is still psychotic. PLAN: To continue the patient with the current medications and encouraged the patient to verbalize the concerns rather than to act out. [facility]# [id number]
[2019-09-07] MEDS: Pantoprazole 40 mg EC Tab PO SCH (06:43)
[2019-09-07] MEDS: Multivitamin Tab PO SCH (08:32)
--- NOTE | 2019-09-07 11:43 | Internal Medicine Prog Note ---
Internal Medicine Subjective - Subjective Service Date: 09/07/19 Patient seen and examined:: with staff Patient is:: awake, verbal, agitated, confused Patient Complaints of:: other (Mentally challenged.) Per staff patient has:: no adverse event, no episodes of fall Internal Medicine Objective - Physical Exam Vitals and I&O: Vital Signs Temp 98.5 F 09/07/19 06:28 Pulse 88 09/07/19 06:28 Resp 20 09/07/19 06:28 BP 125/76 09/07/19 06:28 Pulse Ox 90 09/07/19 06:28 Intake & Output 09/06/19 09/07/19 09/07/19 18:59 06:59 18:59 Intake Total 240 Balance 240 Intake: Oral 240 Other: # Voids 3 # Bowel Movements 0 Stool Characteristics Soft Soft Active Medications: Current Medications Acetaminophen (Tylenol) 650 mg PO Q4HR PRN PRN Reason: Mild Pain (Scale 1-3) Stop: 10/31/19 22:47 Acetaminophen (Tylenol) 650 mg PO Q4H PRN PRN Reason: TEMP ABOVE 100 Stop: 11/01/19 09:21 Al Hydrox/Mg Hydrox/Simethicone (Maalox) 30 ml PO Q4HR PRN PRN Reason: GI DISTRESS Stop: 10/31/19 22:47 Albuterol Sulfate (Albuterol 2.5mg/3ml Neb Ud) 2.5 mg HHN Q4H PRN PRN Reason: Wheezing Stop: 11/01/19 14:56 Docusate Sodium (Colace) 250 mg PO BID [facility] Stop: 11/01/19 08:59 Last Admin: 09/07/19 08:32 Dose: 250 mg Guaifenesin/Dextromethorphan (Diabetic Tussin Dm Sugar Free) 10 ml PO Q4HR PRN PRN Reason: Congestion Stop: 10/31/19 23:48 Ibuprofen (Motrin) 600 mg PO TID PRN PRN Reason: BODY ACHES AND HEADACHES Stop: 10/31/19 22:59 Last Admin: 09/06/19 13:46 Dose: 600 mg Loperamide HCl (Imodium) 2 mg PO TID PRN PRN Reason: diarrhea Stop: 11/01/19 05:30 Loratadine (Claritin) 10 mg PO DAILY [facility] Stop: 11/01/19 08:59 Last Admin: 09/07/19 08:32 Dose: 10 mg Lorazepam (Ativan) 0.5 mg PO Q4HR PRN; Protocol PRN Reason: Anxiety Stop: 10/01/19 22:47 Magnesium Hydroxide (Milk Of Magnesia) 30 ml PO HS PRN PRN Reason: Constipation Multivitamins/Vitamin C (Theragran) 1 tab PO DAILY [facility] Stop: 11/01/19 08:59 Last Admin: 09/07/19 08:32 Dose: 1 tab Mupirocin (Bactroban Oint) 1 appl NS BID [facility] Stop: 09/10/19 17:01 Last Admin: 09/07/19 09:48 Dose: 1 appl Ondansetron HCl (Zofran Odt) 8 mg PO Q6H PRN PRN Reason: IF COMPAZINE INEFFECTIVE Oxybutynin Chloride (Ditropan) 5 mg PO BID [facility] Stop: 11/01/19 08:59 Last Admin: 09/07/19 08:32 Dose: 5 mg Pantoprazole Sodium (Protonix) 40 mg PO QDAC [facility] Stop: 11/01/19 07:29 Last Admin: 09/07/19 06:43 Dose: 40 mg Prochlorperazine Maleate (Compazine) 5 mg PO TID PRN PRN Reason: Nausea / Vomiting Promethazine HCl/Dextromethorphan (Phenergan Dm 6.25/15mg-5 Ml) 5 ml PO QID PRN PRN Reason: Cough Stop: 10/31/19 23:48 Pseudoephedrine HCl (Sudafed) 30 mg PO TID PRN PRN Reason: Cold Symptons (nasal congest.) Quetiapine Fumarate (Seroquel) 200 mg PO BID [facility]; Protocol Stop: 11/01/19 08:59 Last Admin: 09/07/19 08:32 Dose: 200 mg Simvastatin (Zocor) 20 mg PO QPM [facility]; Protocol Stop: 11/01/19 16:59 Last Admin: 09/06/19 16:12 Dose: 20 mg Trazodone HCl (Desyrel) 50 mg PO HS [facility]; Protocol Stop: 11/01/19 20:59 Last Admin: 09/06/19 20:47 Dose: 50 mg Zolpidem Tartrate (Ambien) 5 mg PO HS PRN PRN Reason: Insomnia Stop: 10/31/19 22:47 Physical Exam: Patient still having behavioral outbursts, remains very paranoid and psychotic, needs monitoring, may be danger to others. General: demented HEENT: NC/AT, PERRLA Neck: Supple Lungs: CTAB Cardiovascular: RRR, Normal S1 Abdomen: soft, non-tender Extremities: clear Neurological: no change, disorganized Internal Medicine Assmt/Plan - Assessment Assessment: Mentally challenged. S/p fall. Severe Lower back pain. Buttock pain. Cardiomegaly. History of Hypertension. - Plan Plan: Continuation of care. Psych consult requested. Monitor vitals, Labs, X-rays. Continue present meds as directed. Monitor diet/nutritional support. Supportive care. Pain management. Fall precaution. Continue present care management. Nutritional Asmnt/Malnutr-PDOC - Dietary Evaluation Malnutrition Findings (Please click <Entered> for more info): Nutritional Asmnt/Malnutrition Start: 09/03/19 12: 44 Text: Status: Complete Freq: Protocol: Document 09/03/19 12:44 BOBBY (Rec: 09/03/19 13:11 MMAAMIR [email or web address]) Nutritional Asmnt/Malnutrition Patient General Information Nutritional Screening Moderate Risk Diagnosis Psychosis Pertinent Medical Hx/Surgical Hx Asthma, hyperlipidemia Subjective Information Patient in dining room at time of visit. Tolerating current diet order with adequate intake. Current Diet Order/ Nutrition Support Cardiac, Chopped Patient / S.O Not Indicated Pertinent Medications maalox, colace, imodium, MOM, Theragran, zofran, protonix, phenergan Pertinent Labs (09/01) albumin 3.5 Nutritional Hx/Data Height 1.6 m Height (Calculated Centimeters) 160.0 Current Weight (lbs) 84.822 kg Weight (Calculated Kilograms) 84.8 Weight (Calculated Grams) 10557.8 [place] Body Weight 115 % [place] Body Weight 162 Body Mass Index (BMI) 33.1 Recent Weight Change No Weight Status Obese GI Symptoms GI Symptoms None Last BM 09/03x 2 Difficult in: None Food Allergies No Cultural/Ethnic/Faith Belief none indicated Usual diet at home unknown Skin Integrity/Comment: Chris 16, superficial laceration.lateral scratches to lower back. Current %PO Good (75-100%) Estimated Nutritional Goals BEE in Kcals: Adj wt of IBW Calories/Kcals/Kg 60.4kg 25-30 kcal/kg Kcals Calculated ~1149-5581 kcal/day Protein: Adj wt of IBW Protein g/kg: (1gm/kg) Protein Calculated ~60 gm/day Fluid: ml ~8602-4752 ml/day (1 ml/kcal) Nutritional Problem No current Nutrition Prob Problem No nutrition diagnosis at this time Intervention/Recommendation Comments 1. Continue Cardiac chopped diet as tolerated by patient. Expected Outcomes/Goals Expected Outcomes/Goals Oral intake >75% ofmeals, weight stable, nutrition related labs WNL F/U LR 09/10-
[2019-09-07] MEDS ORDERED: Hydrocodone/APAP 5mg/325mg Tab PO PRN (16:26)
--- NOTE | 2019-09-07 21:52 | Progress Notes ---
DATE: 09/07/2019 SUBJECTIVE: Staff was spoken to. The patient is interviewed. Mood is noted to be irritable. Affect is constricted. The patient is isolative and withdrawn. Insight and judgment are noted to be still impaired. Impulse control is noted to be poor. The patient is screaming and yelling today. The patient is very demanding. The patient has no insight into her illness. The patient so far has been able to tolerate the medications. No side effects to the medications are noted. ASSESSMENT: The patient is still impulsive and paranoid. PLAN: To continue the patient with the supportive therapy, encouraged the patient to verbalize the concerns rather than to act out. JOB# [id number]
[2019-09-08] MEDS: Pantoprazole 40 mg EC Tab PO SCH (06:40)
[2019-09-08] MEDS: Multivitamin Tab PO SCH (08:14)
--- NOTE | 2019-09-08 11:01 | Internal Medicine Prog Note ---
Internal Medicine Subjective - Subjective Service Date: 09/08/19 Patient seen and examined:: with staff Patient is:: awake, verbal, agitated, confused Patient Complaints of:: other (Mentally challenged.) Per staff patient has:: no adverse event, no episodes of fall Internal Medicine Objective - Physical Exam Vitals and I&O: Vital Signs Temp 98.1 F 09/08/19 06:48 Pulse 94 09/08/19 06:48 Resp 17 09/08/19 08:00 BP 102/66 09/08/19 06:48 Pulse Ox 97 09/08/19 06:48 Intake & Output 09/07/19 09/08/19 09/08/19 18:59 06:59 18:59 Intake Total 900 120 Balance 900 120 Intake: Oral 900 120 Other: # Voids 3 3 # Bowel Movements 1 Stool Characteristics Soft Soft Soft Active Medications: Current Medications Acetaminophen (Tylenol) 650 mg PO Q4HR PRN PRN Reason: Mild Pain (Scale 1-3) Stop: 10/31/19 22:47 Acetaminophen (Tylenol) 650 mg PO Q4H PRN PRN Reason: TEMP ABOVE 100 Stop: 11/01/19 09:21 Acetaminophen/Hydrocodone Bitart ([place] 5mg/325mg) 1 tab PO Q6H PRN PRN Reason: Severe Pain Stop: 11/06/19 16:25 Al Hydrox/Mg Hydrox/Simethicone (Maalox) 30 ml PO Q4HR PRN PRN Reason: GI DISTRESS Stop: 10/31/19 22:47 Albuterol Sulfate (Albuterol 2.5mg/3ml Neb Ud) 2.5 mg HHN Q4H PRN PRN Reason: Wheezing Stop: 11/01/19 14:56 Docusate Sodium (Colace) 250 mg PO BID YAMINI Stop: 11/01/19 08:59 Last Admin: 09/08/19 08:14 Dose: 250 mg Guaifenesin/Dextromethorphan (Diabetic Tussin Dm Sugar Free) 10 ml PO Q4HR PRN PRN Reason: Congestion Stop: 10/31/19 23:48 Ibuprofen (Motrin) 600 mg PO TID PRN PRN Reason: BODY ACHES AND HEADACHES Stop: 10/31/19 22:59 Last Admin: 09/08/19 08:15 Dose: 600 mg Loperamide HCl (Imodium) 2 mg PO TID PRN PRN Reason: diarrhea Stop: 11/01/19 05:30 Last Admin: 09/08/19 08:14 Dose: 2 mg Loratadine (Claritin) 10 mg PO DAILY YAMINI Stop: 11/01/19 08:59 Last Admin: 09/08/19 08:14 Dose: 10 mg Lorazepam (Ativan) 0.5 mg PO Q4HR PRN; Protocol PRN Reason: Anxiety Stop: 10/01/19 22:47 Last Admin: 09/08/19 07:51 Dose: 0.5 mg Magnesium Hydroxide (Milk Of Magnesia) 30 ml PO HS PRN PRN Reason: Constipation Multivitamins/Vitamin C (Theragran) 1 tab PO DAILY YAMINI Stop: 11/01/19 08:59 Last Admin: 09/08/19 08:14 Dose: 1 tab Mupirocin (Bactroban Oint) 1 appl NS BID YAMINI Stop: 09/10/19 17:01 Last Admin: 09/08/19 08:15 Dose: 1 appl Ondansetron HCl (Zofran Odt) 8 mg PO Q6H PRN PRN Reason: IF COMPAZINE INEFFECTIVE Oxybutynin Chloride (Ditropan) 5 mg PO BID [facility] Stop: 11/01/19 08:59 Last Admin: 09/08/19 08:14 Dose: 5 mg Pantoprazole Sodium (Protonix) 40 mg PO QDAC YAMINI Stop: 11/01/19 07:29 Last Admin: 09/08/19 06:40 Dose: 40 mg Prochlorperazine Maleate (Compazine) 5 mg PO TID PRN PRN Reason: Nausea / Vomiting Promethazine HCl/Dextromethorphan (Phenergan Dm 6.25/15mg-5 Ml) 5 ml PO QID PRN PRN Reason: Cough Stop: 10/31/19 23:48 Pseudoephedrine HCl (Sudafed) 30 mg PO TID PRN PRN Reason: Cold Symptons (nasal congest.) Quetiapine Fumarate (Seroquel) 200 mg PO BID [facility]; Protocol Stop: 11/01/19 08:59 Last Admin: 09/08/19 08:14 Dose: 200 mg Simvastatin (Zocor) 20 mg PO QPM [facility]; Protocol Stop: 11/01/19 16:59 Last Admin: 09/07/19 17:34 Dose: 20 mg Trazodone HCl (Desyrel) 50 mg PO HS YAMINI; Protocol Stop: 11/01/19 20:59 Last Admin: 09/07/19 20:15 Dose: 50 mg Zolpidem Tartrate (Ambien) 5 mg PO HS PRN PRN Reason: Insomnia Stop: 10/31/19 22:47 Physical Exam: Patient is withdrawn, keeps to herself, Impulsive behavior. General: demented HEENT: NC/AT, PERRLA Neck: Supple Lungs: CTAB Cardiovascular: RRR, Normal S1 Abdomen: soft, non-tender Extremities: clear Neurological: no change, disorganized Internal Medicine Assmt/Plan - Assessment Assessment: Mentally challenged. S/p fall. Severe Lower back pain. Buttock pain. Cardiomegaly. History of Hypertension. - Plan Plan: Continuation of care. Psych consult requested. Monitor vitals, Labs, X-rays. Continue present meds as directed. Monitor diet/nutritional support. Supportive care. Pain management. Fall precaution. Continue present care management. Nutritional Asmnt/Malnutr-PDOC - Dietary Evaluation Malnutrition Findings (Please click <Entered> for more info): Nutritional Asmnt/Malnutrition Start: 09/03/19 12: 44 Text: Status: Complete Freq: Protocol: Document 09/03/19 12:44 MMAAMIR (Rec: 09/03/19 13:11 [email or web address]- [email or web address]) Nutritional Asmnt/Malnutrition Patient General Information Nutritional Screening Moderate Risk Diagnosis Psychosis Pertinent Medical Hx/Surgical Hx Asthma, hyperlipidemia Subjective Information Patient in dining room at time of visit. Tolerating current diet order with adequate intake. Current Diet Order/ Nutrition Support Cardiac, Chopped Patient / S.O Not Indicated Pertinent Medications maalox, colace, imodium, MOM, Theragran, zofran, protonix, phenergan Pertinent Labs (09/01) albumin 3.5 Nutritional Hx/Data Height 1.6 m Height (Calculated Centimeters) 160.0 Current Weight (lbs) 84.822 kg Weight (Calculated Kilograms) 84.8 Weight (Calculated Grams) 18123.8 [place] Body Weight 115 % [place] Body Weight 162 Body Mass Index (BMI) 33.1 Recent Weight Change No Weight Status Obese GI Symptoms GI Symptoms None Last BM 19x 2 Difficult in: None Food Allergies No Cultural/Ethnic/Yarsani Belief none indicated Usual diet at home unknown Skin Integrity/Comment: Chris 16, superficial laceration.lateral scratches to lower back. Current %PO Good (75-100%) Estimated Nutritional Goals BEE in Kcals: Adj wt of IBW Calories/Kcals/Kg 60.4kg 25-30 kcal/kg Kcals Calculated ~0852-8776 kcal/day Protein: Adj wt of IBW Protein g/kg: (1gm/kg) Protein Calculated ~60 gm/day Fluid: ml ~6771-3383 ml/day (1 ml/kcal) Nutritional Problem No current Nutrition Prob Problem No nutrition diagnosis at this time Intervention/Recommendation Comments 1. Continue Cardiac chopped diet as tolerated by patient. Expected Outcomes/Goals Expected Outcomes/Goals Oral intake >75% ofmeals, weight stable, nutrition related labs WNL F/U LR 09/10-
--- NOTE | 2019-09-09 03:44 | Progress Notes ---
DATE: 09/08/2019 SUBJECTIVE: Staff was spoken to. The patient is interviewed. Mood is noted to be irritable. Affect is constricted. The patient is stating that she has been in acute pain and he is not able to move. Coping skills are noted to be very poor. The patient has been paranoid. The patient's insight and judgment are noted to be still impaired. Impulse control is noted to be limited. Sleep is noted to be poor last night and appetite is noted to be fair. ASSESSMENT: The patient is still paranoid. PLAN: To continue the patient with the supportive therapy, encouraged the patient to verbalize the concerns rather than to act out. JOB# [id number]
[2019-09-09] MEDS: Pantoprazole 40 mg EC Tab PO SCH (08:09)
[2019-09-09] MEDS: Multivitamin Tab PO SCH (09:10)
--- NOTE | 2019-09-09 18:15 | Internal Medicine Prog Note ---
Internal Medicine Subjective - Subjective Service Date: 09/09/19 Patient is:: awake, verbal, agitated, confused Patient Complaints of:: other (Mentally challenged.) Per staff patient has:: no adverse event, no episodes of fall Internal Medicine Objective - Physical Exam Vitals and I&O: Vital Signs Temp 97.4 F 09/09/19 14:00 Pulse 101 09/09/19 14:00 Resp 20 09/09/19 14:00 BP 102/61 09/09/19 14:00 Pulse Ox 98 09/09/19 14:00 Intake & Output 09/08/19 09/09/19 09/09/19 18:59 06:59 18:59 Intake Total 0719 891 5814 Balance 1858 876 6125 Intake: Oral 3223 916 5203 Other: # Voids 4 3 # Bowel Movements 1 1 Stool Characteristics Soft Active Medications: Current Medications Acetaminophen (Tylenol) 650 mg PO Q4HR PRN PRN Reason: Mild Pain (Scale 1-3) Stop: 10/31/19 22:47 Acetaminophen (Tylenol) 650 mg PO Q4H PRN PRN Reason: TEMP ABOVE 100 Stop: 11/01/19 09:21 Last Admin: 09/09/19 11:00 Dose: 650 mg Acetaminophen/Hydrocodone Bitart ([facility] 5mg/325mg) 1 tab PO Q6H PRN PRN Reason: Severe Pain Stop: 11/06/19 16:25 Al Hydrox/Mg Hydrox/Simethicone (Maalox) 30 ml PO Q4HR PRN PRN Reason: GI DISTRESS Stop: 10/31/19 22:47 Albuterol Sulfate (Albuterol 2.5mg/3ml Neb Ud) 2.5 mg HHN Q4H PRN PRN Reason: Wheezing Stop: 11/01/19 14:56 Docusate Sodium (Colace) 250 mg PO BID YAMINI Stop: 11/01/19 08:59 Last Admin: 09/09/19 17:44 Dose: 250 mg Guaifenesin/Dextromethorphan (Diabetic Tussin Dm Sugar Free) 10 ml PO Q4HR PRN PRN Reason: Congestion Stop: 10/31/19 23:48 Ibuprofen (Motrin) 600 mg PO TID PRN PRN Reason: BODY ACHES AND HEADACHES Stop: 10/31/19 22:59 Last Admin: 09/08/19 08:15 Dose: 600 mg Loperamide HCl (Imodium) 2 mg PO TID PRN PRN Reason: diarrhea Stop: 11/01/19 05:30 Last Admin: 09/08/19 08:14 Dose: 2 mg Loratadine (Claritin) 10 mg PO DAILY [facility] Stop: 11/01/19 08:59 Last Admin: 09/09/19 09:09 Dose: 10 mg Lorazepam (Ativan) 0.5 mg PO Q4HR PRN; Protocol PRN Reason: Anxiety Stop: 10/01/19 22:47 Last Admin: 09/08/19 07:51 Dose: 0.5 mg Magnesium Hydroxide (Milk Of Magnesia) 30 ml PO HS PRN PRN Reason: Constipation Multivitamins/Vitamin C (Theragran) 1 tab PO DAILY YAMINI Stop: 11/01/19 08:59 Last Admin: 09/09/19 09:10 Dose: 1 tab Mupirocin (Bactroban Oint) 1 appl NS BID YAMINI Stop: 09/10/19 17:01 Last Admin: 09/09/19 17:44 Dose: 1 appl Ondansetron HCl (Zofran Odt) 8 mg PO Q6H PRN PRN Reason: IF COMPAZINE INEFFECTIVE Oxybutynin Chloride (Ditropan) 5 mg PO BID YAMINI Stop: 11/01/19 08:59 Last Admin: 09/09/19 17:44 Dose: 5 mg Pantoprazole Sodium (Protonix) 40 mg PO QDAC YAMINI Stop: 11/01/19 07:29 Last Admin: 09/09/19 08:09 Dose: Not Given Prochlorperazine Maleate (Compazine) 5 mg PO TID PRN PRN Reason: Nausea / Vomiting Promethazine HCl/Dextromethorphan (Phenergan Dm 6.25/15mg-5 Ml) 5 ml PO QID PRN PRN Reason: Cough Stop: 10/31/19 23:48 Pseudoephedrine HCl (Sudafed) 30 mg PO TID PRN PRN Reason: Cold Symptons (nasal congest.) Quetiapine Fumarate (Seroquel) 200 mg PO BID YAMINI; Protocol Stop: 11/01/19 08:59 Last Admin: 09/09/19 17:44 Dose: 200 mg Simvastatin (Zocor) 20 mg PO QPM YAMINI; Protocol Stop: 11/01/19 16:59 Last Admin: 09/09/19 17:44 Dose: 20 mg Trazodone HCl (Desyrel) 50 mg PO HS YAMINI; Protocol Stop: 11/01/19 20:59 Last Admin: 09/08/19 20:53 Dose: 50 mg Zolpidem Tartrate (Ambien) 5 mg PO HS PRN PRN Reason: Insomnia Stop: 10/31/19 22:47 General: demented HEENT: NC/AT, PERRLA Neck: Supple Lungs: CTAB Cardiovascular: RRR, Normal S1 Abdomen: soft, non-tender Extremities: clear Neurological: no change, disorganized Internal Medicine Assmt/Plan - Assessment Assessment: Mentally challenged. S/p fall. Severe Lower back pain. Buttock pain. Cardiomegaly. History of Hypertension. - Plan Plan: Continuation of care. Psych consult requested. Monitor vitals, Labs, X-rays. Continue present meds as directed. Monitor diet/nutritional support. Supportive care. Pain management. Fall precaution. Continue current treatment plan as ordered. Nutritional Asmnt/Malnutr-PDOC - Dietary Evaluation Malnutrition Findings (Please click <Entered> for more info): Nutritional Asmnt/Malnutrition Start: 09/03/19 12: 44 Text: Status: Complete Freq: Protocol: Document 09/03/19 12:44 BOBBY (Rec: 09/03/19 13:11 MMAAMIR DAMICO- FNS1) Nutritional Asmnt/Malnutrition Patient General Information Nutritional Screening Moderate Risk Diagnosis Psychosis Pertinent Medical Hx/Surgical Hx Asthma, hyperlipidemia Subjective Information Patient in dining room at time of visit. Tolerating current diet order with adequate intake. Current Diet Order/ Nutrition Support Cardiac, Chopped Patient / S.O Not Indicated Pertinent Medications maalox, colace, imodium, MOM, Theragran, zofran, protonix, phenergan Pertinent Labs (09/01) albumin 3.5 Nutritional Hx/Data Height 5 ft 3 in Height (Calculated Centimeters) 160.0 Current Weight (lbs) 187 lb Weight (Calculated Kilograms) 84.8 Weight (Calculated Grams) 71920.8 [place] Body Weight 115 % [place] Body Weight 162 Body Mass Index (BMI) 33.1 Recent Weight Change No Weight Status Obese GI Symptoms GI Symptoms None Last BM 09/03x 2 Difficult in: None Food Allergies No Cultural/Ethnic/Sabianism Belief none indicated Usual diet at home unknown Skin Integrity/Comment: Chris 16, superficial laceration.lateral scratches to lower back. Current %PO Good (75-100%) Estimated Nutritional Goals BEE in Kcals: Adj wt of IBW Calories/Kcals/Kg 60.4kg 25-30 kcal/kg Kcals Calculated ~8355-3729 kcal/day Protein: Adj wt of IBW Protein g/kg: (1gm/kg) Protein Calculated ~60 gm/day Fluid: ml ~9456-4484 ml/day (1 ml/kcal) Nutritional Problem No current Nutrition Prob Problem No nutrition diagnosis at this time Intervention/Recommendation Comments 1. Continue Cardiac chopped diet as tolerated by patient. Expected Outcomes/Goals Expected Outcomes/Goals Oral intake >75% ofmeals, weight stable, nutrition related labs WNL F/U LR 09/10-
--- NOTE | 2019-09-10 02:46 | Progress Notes ---
DATE: 09/09/2019 PSYCHIATRIC PROGRESS NOTE SUBJECTIVE: Staff was spoken to. The patient is interviewed. Mood is noted to be anxious. The patient's insight and judgment are noted to be still impaired. Impulse control is noted to be limited. The patient is stating that her major problem at this time is noted to be pain. The patient's sleep and appetite are noted to be improving and yelling and screaming has been coming down. ASSESSMENT: The patient is still impulsive. PLAN: To continue the patient with the supportive therapy. I encouraged the patient to verbalize the concerns rather than to act out. JOB# [id number]
[2019-09-10] MEDS: Pantoprazole 40 mg EC Tab PO SCH (06:35)
--- NOTE | 2019-09-10 09:22 | Progress Notes ---
DATE: 09/10/2019 SUBJECTIVE: The patient was seen in her room, eating breakfast. The patient appears to be guarded, easily gets frustrated with poor impulse control. Otherwise, behavior has been improving. The patient is in no acute distress. OBJECTIVE: VITAL SIGNS: Temperature 98.4, heart rate of 88, blood pressure 134/69, respirations 19 and 96% on room air. HEENT: Head is atraumatic and normocephalic. Eyes: Bilateral conjunctivae are clear. Bilateral pupils equal, round, reactive. NECK: Supple. No JVD. CARDIOVASCULAR: S1 and S2, without murmur. PULMONARY: Clear to auscultation. GASTROINTESTINAL: Soft and nontender, without guarding. Positive bowel sounds. MUSCULOSKELETAL: No clubbing. No cyanosis noted. ASSESSMENT: 1. Psychosis. 2. Hyperlipidemia. 3. Asthma. 4. Obesity. PLAN: We will continue to keep the patient in Inpatient Psychiatric Unit. We will follow up with the psychiatrist to monitor the patient's condition and behavior. We will put the patient on fall precaution. Treatment plans were discussed with the patient's nurse. Treatment plans were discussed with Dr. Phillips. JOB# [id number]
[2019-09-10] MEDS: Multivitamin Tab PO SCH (09:23)
--- NOTE | 2019-09-10 16:27 | Internal Medicine Prog Note ---
Internal Medicine Subjective - Subjective Service Date: 09/10/19 Patient seen and examined:: with staff Patient is:: awake, verbal, agitated, confused Patient Complaints of:: other (Mentally challenged.) Per staff patient has:: no adverse event, no episodes of fall Internal Medicine Objective - Physical Exam Vitals and I&O: Vital Signs Temp 97.9 F 09/10/19 14:00 Pulse 95 09/10/19 14:00 Resp 18 09/10/19 14:00 BP 132/60 09/10/19 14:00 Pulse Ox 96 09/10/19 14:00 Intake & Output 09/09/19 09/10/19 09/10/19 18:59 06:59 18:59 Intake Total 1200 240 Output Total 1 Balance 1200 239 Intake: Oral 1200 240 Output: Urine/Stool Mix 1 Other: # Voids 3 # Bowel Movements 1 1 Stool Characteristics Soft Active Medications: Current Medications Acetaminophen (Tylenol) 650 mg PO Q4HR PRN PRN Reason: Mild Pain (Scale 1-3) Stop: 10/31/19 22:47 Last Admin: 09/10/19 14:36 Dose: 650 mg Acetaminophen (Tylenol) 650 mg PO Q4H PRN PRN Reason: TEMP ABOVE 100 Stop: 11/01/19 09:21 Last Admin: 09/09/19 11:00 Dose: 650 mg Acetaminophen/Hydrocodone Bitart ([place] 5mg/325mg) 1 tab PO Q6H PRN PRN Reason: Severe Pain Stop: 11/06/19 16:25 Al Hydrox/Mg Hydrox/Simethicone (Maalox) 30 ml PO Q4HR PRN PRN Reason: GI DISTRESS Stop: 10/31/19 22:47 Albuterol Sulfate (Albuterol 2.5mg/3ml Neb Ud) 2.5 mg HHN Q4H PRN PRN Reason: Wheezing Stop: 11/01/19 14:56 Docusate Sodium (Colace) 250 mg PO BID YAMINI Stop: 11/01/19 08:59 Last Admin: 09/10/19 09:22 Dose: 250 mg Guaifenesin/Dextromethorphan (Diabetic Tussin Dm Sugar Free) 10 ml PO Q4HR PRN PRN Reason: Congestion Stop: 10/31/19 23:48 Ibuprofen (Motrin) 600 mg PO TID PRN PRN Reason: BODY ACHES AND HEADACHES Stop: 10/31/19 22:59 Last Admin: 09/08/19 08:15 Dose: 600 mg Loperamide HCl (Imodium) 2 mg PO TID PRN PRN Reason: diarrhea Stop: 11/01/19 05:30 Last Admin: 09/08/19 08:14 Dose: 2 mg Loratadine (Claritin) 10 mg PO DAILY YAMINI Stop: 11/01/19 08:59 Last Admin: 09/10/19 09:23 Dose: 10 mg Lorazepam (Ativan) 0.5 mg PO Q4HR PRN; Protocol PRN Reason: Anxiety Stop: 10/01/19 22:47 Last Admin: 09/08/19 07:51 Dose: 0.5 mg Magnesium Hydroxide (Milk Of Magnesia) 30 ml PO HS PRN PRN Reason: Constipation Multivitamins/Vitamin C (Theragran) 1 tab PO DAILY YAMINI Stop: 11/01/19 08:59 Last Admin: 09/10/19 09:23 Dose: 1 tab Mupirocin (Bactroban Oint) 1 appl NS BID YAMINI Stop: 09/10/19 17:01 Last Admin: 09/10/19 09:22 Dose: 1 appl Ondansetron HCl (Zofran Odt) 8 mg PO Q6H PRN PRN Reason: IF COMPAZINE INEFFECTIVE Oxybutynin Chloride (Ditropan) 5 mg PO BID [facility] Stop: 11/01/19 08:59 Last Admin: 09/10/19 09:23 Dose: 5 mg Pantoprazole Sodium (Protonix) 40 mg PO QDAC YAMINI Stop: 11/01/19 07:29 Last Admin: 09/10/19 06:35 Dose: 40 mg Prochlorperazine Maleate (Compazine) 5 mg PO TID PRN PRN Reason: Nausea / Vomiting Promethazine HCl/Dextromethorphan (Phenergan Dm 6.25/15mg-5 Ml) 5 ml PO QID PRN PRN Reason: Cough Stop: 10/31/19 23:48 Pseudoephedrine HCl (Sudafed) 30 mg PO TID PRN PRN Reason: Cold Symptons (nasal congest.) Quetiapine Fumarate (Seroquel) 200 mg PO BID YAMINI; Protocol Stop: 11/01/19 08:59 Last Admin: 09/10/19 09:23 Dose: 200 mg Simvastatin (Zocor) 20 mg PO QPM YAMINI; Protocol Stop: 11/01/19 16:59 Last Admin: 09/09/19 17:44 Dose: 20 mg Trazodone HCl (Desyrel) 50 mg PO HS YAMINI; Protocol Stop: 11/01/19 20:59 Last Admin: 09/09/19 21:10 Dose: 50 mg Zolpidem Tartrate (Ambien) 5 mg PO HS PRN PRN Reason: Insomnia Stop: 10/31/19 22:47 Physical Exam: Patient has poor impulse control, easily frustrated and very restless. General: demented HEENT: NC/AT, PERRLA Neck: Supple Lungs: CTAB Cardiovascular: RRR, Normal S1 Abdomen: soft, non-tender Extremities: clear Neurological: no change, disorganized Internal Medicine Assmt/Plan - Assessment Assessment: Mentally challenged. S/p fall. Severe Lower back pain. Buttock pain. Cardiomegaly. History of Hypertension. - Plan Plan: Continuation of care. Psych consult requested. Monitor vitals, Labs, X-rays. Continue present meds as directed. Monitor diet/nutritional support. Supportive care. Pain management. Fall precaution. Continue present care management. Nutritional Asmnt/Malnutr-PDOC - Dietary Evaluation Malnutrition Findings (Please click <Entered> for more info): Nutritional Asmnt/Malnutrition Start: 09/03/19 12: 44 Text: Status: Complete Freq: Protocol: Document 09/03/19 12:44 BOBBY (Rec: 09/03/19 13:11 MMAAMIR DAMICO- FNS1) Nutritional Asmnt/Malnutrition Patient General Information Nutritional Screening Moderate Risk Diagnosis Psychosis Pertinent Medical Hx/Surgical Hx Asthma, hyperlipidemia Subjective Information Patient in dining room at time of visit. Tolerating current diet order with adequate intake. Current Diet Order/ Nutrition Support Cardiac, Chopped Patient / S.O Not Indicated Pertinent Medications maalox, colace, imodium, MOM, Theragran, zofran, protonix, phenergan Pertinent Labs (09/01) albumin 3.5 Nutritional Hx/Data Height 1.6 m Height (Calculated Centimeters) 160.0 Current Weight (lbs) 84.822 kg Weight (Calculated Kilograms) 84.8 Weight (Calculated Grams) 49827.8 [place] Body Weight 115 % [place] Body Weight 162 Body Mass Index (BMI) 33.1 Recent Weight Change No Weight Status Obese GI Symptoms GI Symptoms None Last BM 09/03x 2 Difficult in: None Food Allergies No Cultural/Ethnic/Latter Day Belief none indicated Usual diet at home unknown Skin Integrity/Comment: Chris 16, superficial laceration.lateral scratches to lower back. Current %PO Good (75-100%) Estimated Nutritional Goals BEE in Kcals: Adj wt of IBW Calories/Kcals/Kg 60.4kg 25-30 kcal/kg Kcals Calculated ~3516-9406 kcal/day Protein: Adj wt of IBW Protein g/kg: (1gm/kg) Protein Calculated ~60 gm/day Fluid: ml ~2926-8741 ml/day (1 ml/kcal) Nutritional Problem No current Nutrition Prob Problem No nutrition diagnosis at this time Intervention/Recommendation Comments 1. Continue Cardiac chopped diet as tolerated by patient. Expected Outcomes/Goals Expected Outcomes/Goals Oral intake >75% ofmeals, weight stable, nutrition related labs WNL F/U LR
--- NOTE | 2019-09-10 18:24 | Progress Notes ---
DATE: 09/10/2019 SUBJECTIVE: Staff was spoken to. The patient is interviewed. Mood is noted to be irritable. Affect is constricted. The patient is stating that she has been in pain and has not been able to sleep. The patient's coping skills are noted to be poor at this time. Insight and judgment are noted to be improving. Impulse control is noted to be limited. The patient's screaming and yelling has been coming down. ASSESSMENT: The patient is still paranoid. PLAN: To continue the patient with Seroquel that she is currently on and followup. Closely monitor the patient's behavior and work with the telehealth case manager and trying to get the patient back to the facility. JOB# [id number]
[2019-09-11] MEDS: Pantoprazole 40 mg EC Tab PO SCH (06:41)
[2019-09-11] MEDS: Multivitamin Tab PO SCH (09:19)
--- NOTE | 2019-09-11 11:45 | Progress Notes ---
DATE: 09/11/2019 SUBJECTIVE: Staff was spoken to. The patient is interviewed. Mood is noted to be irritable. Affect is constricted. Insight and judgment at this time are noted to be still impaired. Impulse control is noted to be limited. Coping skills are noted to be limited. The patient has been having difficult time to cope with the stress. The patient is still focused on her pain medications. The patient has paranoia, but denies any command hallucinations. ASSESSMENT: The patient's paranoia is a concern. The patient is gravely disabled. PLAN: To continue the patient with the supportive therapy, encouraged the patient to verbalize the concerns rather than to act out. JOB# [id number]
--- NOTE | 2019-09-11 14:56 | Internal Medicine Prog Note ---
Internal Medicine Subjective - Subjective Patient is:: awake, verbal, in bed, agitated, confused Patient Complaints of:: other (Mentally challenged.) Per staff patient has:: no adverse event, no episodes of fall Internal Medicine Objective - Physical Exam Vitals and I&O: Vital Signs Temp 97.6 F 09/11/19 06:42 Pulse 90 09/11/19 06:42 Resp 18 09/11/19 07:56 BP 125/83 09/11/19 06:42 Pulse Ox 92 09/11/19 06:42 Intake & Output 09/10/19 09/11/19 09/11/19 18:59 06:59 18:59 Intake Total 1300 240 Output Total 1 Balance 1300 239 Intake: Oral 1300 240 Output: Urine/Stool Mix 1 Other: # Voids 3 2 # Bowel Movements 2 Stool Characteristics Soft Active Medications: Current Medications Acetaminophen (Tylenol) 650 mg PO Q4HR PRN PRN Reason: Mild Pain (Scale 1-3) Stop: 10/31/19 22:47 Last Admin: 09/11/19 12:12 Dose: 650 mg Acetaminophen (Tylenol) 650 mg PO Q4H PRN PRN Reason: TEMP ABOVE 100 Stop: 11/01/19 09:21 Last Admin: 09/09/19 11:00 Dose: 650 mg Acetaminophen/Hydrocodone Bitart ([place] 5mg/325mg) 1 tab PO Q6H PRN PRN Reason: Severe Pain Stop: 11/06/19 16:25 Al Hydrox/Mg Hydrox/Simethicone (Maalox) 30 ml PO Q4HR PRN PRN Reason: GI DISTRESS Stop: 10/31/19 22:47 Albuterol Sulfate (Albuterol 2.5mg/3ml Neb Ud) 2.5 mg HHN Q4H PRN PRN Reason: Wheezing Stop: 11/01/19 14:56 Docusate Sodium (Colace) 250 mg PO BID [facility] Stop: 11/01/19 08:59 Last Admin: 09/11/19 09:19 Dose: 250 mg Guaifenesin/Dextromethorphan (Diabetic Tussin Dm Sugar Free) 10 ml PO Q4HR PRN PRN Reason: Congestion Stop: 10/31/19 23:48 Ibuprofen (Motrin) 600 mg PO TID PRN PRN Reason: BODY ACHES AND HEADACHES Stop: 10/31/19 22:59 Last Admin: 09/08/19 08:15 Dose: 600 mg Loperamide HCl (Imodium) 2 mg PO TID PRN PRN Reason: diarrhea Stop: 11/01/19 05:30 Last Admin: 09/08/19 08:14 Dose: 2 mg Loratadine (Claritin) 10 mg PO DAILY [facility] Stop: 11/01/19 08:59 Last Admin: 09/11/19 09:19 Dose: 10 mg Lorazepam (Ativan) 0.5 mg PO Q4HR PRN; Protocol PRN Reason: Anxiety Stop: 10/01/19 22:47 Last Admin: 09/08/19 07:51 Dose: 0.5 mg Magnesium Hydroxide (Milk Of Magnesia) 30 ml PO HS PRN PRN Reason: Constipation Multivitamins/Vitamin C (Theragran) 1 tab PO DAILY Y[facility]INI Stop: 11/01/19 08:59 Last Admin: 09/11/19 09:19 Dose: 1 tab Ondansetron HCl (Zofran Odt) 8 mg PO Q6H PRN PRN Reason: IF COMPAZINE INEFFECTIVE Oxybutynin Chloride (Ditropan) 5 mg PO BID [facility] Stop: 11/01/19 08:59 Last Admin: 09/11/19 09:19 Dose: 5 mg Pantoprazole Sodium (Protonix) 40 mg PO QDAC [facility] Stop: 11/01/19 07:29 Last Admin: 09/11/19 06:41 Dose: 40 mg Prochlorperazine Maleate (Compazine) 5 mg PO TID PRN PRN Reason: Nausea / Vomiting Promethazine HCl/Dextromethorphan (Phenergan Dm 6.25/15mg-5 Ml) 5 ml PO QID PRN PRN Reason: Cough Stop: 10/31/19 23:48 Pseudoephedrine HCl (Sudafed) 30 mg PO TID PRN PRN Reason: Cold Symptons (nasal congest.) Quetiapine Fumarate (Seroquel) 200 mg PO BID [facility]; Protocol Stop: 11/01/19 08:59 Last Admin: 09/11/19 09:19 Dose: 200 mg Simvastatin (Zocor) 20 mg PO QPM [facility]; Protocol Stop: 11/01/19 16:59 Last Admin: 09/10/19 17:21 Dose: 20 mg Trazodone HCl (Desyrel) 50 mg PO HS [facility]; Protocol Stop: 11/01/19 20:59 Last Admin: 09/10/19 20:59 Dose: 50 mg Zolpidem Tartrate (Ambien) 5 mg PO HS PRN PRN Reason: Insomnia Stop: 10/31/19 22:47 General: demented, NAD HEENT: NC/AT, PERRLA Neck: Supple, No JVD Lungs: other (no acute respiratory distress) Cardiovascular: RRR Abdomen: soft, non-tender Extremities: clear Neurological: no change, disorganized Internal Medicine Assmt/Plan - Assessment Assessment: Psychosis Paranoia Hyperlipidemia Asthma Obesity - Plan Plan: Continue current treatment plan. Monitor Labs. Continue current medications Continue to monitor VS Monitor Diet/Nutritional support. Psych management per Psychiatry. Pain Management. PT/OT prnSafety precaution, Fall precaution, frequent nursing round. Supportive care. Continue collaborating with consulting specialists, case management and nursing team Nutritional Asmnt/Malnutr-PDOC - Dietary Evaluation Malnutrition Findings (Please click <Entered> for more info): Nutritional Asmnt/Malnutrition Start: 09/03/19 12: 44 Text: Status: Complete Freq: Protocol: Document 09/03/19 12:44 BOBBY (Rec: 09/03/19 13:11 BOBBY [email or web address]) Nutritional Asmnt/Malnutrition Patient General Information Nutritional Screening Moderate Risk Diagnosis Psychosis Pertinent Medical Hx/Surgical Hx Asthma, hyperlipidemia Subjective Information Patient in dining room at time of visit. Tolerating current diet order with adequate intake. Current Diet Order/ Nutrition Support Cardiac, Chopped Patient / S.O Not Indicated Pertinent Medications maalox, colace, imodium, MOM, Theragran, zofran, protonix, phenergan Pertinent Labs (09/01) albumin 3.5 Nutritional Hx/Data Height 5 ft 3 in Height (Calculated Centimeters) 160.0 Current Weight (lbs) 187 lb Weight (Calculated Kilograms) 84.8 Weight (Calculated Grams) 80874.8 [place] Body Weight 115 % [place] Body Weight 162 Body Mass Index (BMI) 33.1 Recent Weight Change No Weight Status Obese GI Symptoms GI Symptoms None Last BM 09/03x 2 Difficult in: None Food Allergies No Cultural/Ethnic/Restorationism Belief none indicated Usual diet at home unknown Skin Integrity/Comment: Chris 16, superficial laceration.lateral scratches to lower back. Current %PO Good (75-100%) Estimated Nutritional Goals BEE in Kcals: Adj wt of IBW Calories/Kcals/Kg 60.4kg 25-30 kcal/kg Kcals Calculated ~3470-7092 kcal/day Protein: Adj wt of IBW Protein g/kg: (1gm/kg) Protein Calculated ~60 gm/day Fluid: ml ~4586-4597 ml/day (1 ml/kcal) Nutritional Problem No current Nutrition Prob Problem No nutrition diagnosis at this time Intervention/Recommendation Comments 1. Continue Cardiac chopped diet as tolerated by patient. Expected Outcomes/Goals Expected Outcomes/Goals Oral intake >75% ofmeals, weight stable, nutrition related labs WNL F/U LR 09/10-
[2019-09-12] MEDS: Pantoprazole 40 mg EC Tab PO SCH (06:58)
[2019-09-12] MEDS: Multivitamin Tab PO SCH (09:01)
--- NOTE | 2019-09-12 17:57 | Internal Medicine Prog Note ---
Internal Medicine Subjective - Subjective Service Date: 09/12/19 Patient seen and examined:: with staff, chart reviewed Patient is:: awake, verbal, in bed, agitated, confused Patient Complaints of:: other (Mentally challenged.) Per staff patient has:: no adverse event, no episodes of fall Internal Medicine Objective - Physical Exam Vitals and I&O: Vital Signs Temp 98.1 F 09/12/19 15:22 Pulse 99 09/12/19 15:22 Resp 20 09/12/19 15:22 BP 128/74 09/12/19 15:22 Pulse Ox 93 09/12/19 15:22 Intake & Output 09/11/19 09/12/19 09/12/19 18:59 06:59 18:59 Intake Total 850 120 Balance 850 120 Intake: Oral 850 120 Other: # Voids 4 3 # Bowel Movements 1 0 Active Medications: Current Medications Acetaminophen (Tylenol) 650 mg PO Q4HR PRN PRN Reason: Mild Pain (Scale 1-3) Stop: 10/31/19 22:47 Last Admin: 09/11/19 12:12 Dose: 650 mg Acetaminophen (Tylenol) 650 mg PO Q4H PRN PRN Reason: TEMP ABOVE 100 Stop: 11/01/19 09:21 Last Admin: 09/09/19 11:00 Dose: 650 mg Acetaminophen/Hydrocodone Bitart ([place] 5mg/325mg) 1 tab PO Q6H PRN PRN Reason: Severe Pain Stop: 11/06/19 16:25 Al Hydrox/Mg Hydrox/Simethicone (Maalox) 30 ml PO Q4HR PRN PRN Reason: GI DISTRESS Stop: 10/31/19 22:47 Albuterol Sulfate (Albuterol 2.5mg/3ml Neb Ud) 2.5 mg HHN Q4H PRN PRN Reason: Wheezing Stop: 11/01/19 14:56 Docusate Sodium (Colace) 250 mg PO BID [facility] Stop: 11/01/19 08:59 Last Admin: 09/12/19 17:01 Dose: Not Given Guaifenesin/Dextromethorphan (Diabetic Tussin Dm Sugar Free) 10 ml PO Q4HR PRN PRN Reason: Congestion Stop: 10/31/19 23:48 Ibuprofen (Motrin) 600 mg PO TID PRN PRN Reason: BODY ACHES AND HEADACHES Stop: 10/31/19 22:59 Last Admin: 09/12/19 17:08 Dose: 600 mg Loperamide HCl (Imodium) 2 mg PO TID PRN PRN Reason: diarrhea Stop: 11/01/19 05:30 Last Admin: 09/08/19 08:14 Dose: 2 mg Loratadine (Claritin) 10 mg PO DAILY [facility] Stop: 11/01/19 08:59 Last Admin: 09/12/19 09:01 Dose: 10 mg Lorazepam (Ativan) 0.5 mg PO Q4HR PRN; Protocol PRN Reason: Anxiety Stop: 10/01/19 22:47 Last Admin: 09/08/19 07:51 Dose: 0.5 mg Magnesium Hydroxide (Milk Of Magnesia) 30 ml PO HS PRN PRN Reason: Constipation Multivitamins/Vitamin C (Theragran) 1 tab PO DAILY [facility] Stop: 11/01/19 08:59 Last Admin: 09/12/19 09:01 Dose: 1 tab Ondansetron HCl (Zofran Odt) 8 mg PO Q6H PRN PRN Reason: IF COMPAZINE INEFFECTIVE Oxybutynin Chloride (Ditropan) 5 mg PO BID [facility] Stop: 11/01/19 08:59 Last Admin: 09/12/19 17:08 Dose: 5 mg Pantoprazole Sodium (Protonix) 40 mg PO QDAC [facility] Stop: 11/01/19 07:29 Last Admin: 09/12/19 06:58 Dose: 40 mg Prochlorperazine Maleate (Compazine) 5 mg PO TID PRN PRN Reason: Nausea / Vomiting Promethazine HCl/Dextromethorphan (Phenergan Dm 6.25/15mg-5 Ml) 5 ml PO QID PRN PRN Reason: Cough Stop: 10/31/19 23:48 Pseudoephedrine HCl (Sudafed) 30 mg PO TID PRN PRN Reason: Cold Symptons (nasal congest.) Quetiapine Fumarate (Seroquel) 200 mg PO BID [facility]; Protocol Stop: 11/01/19 08:59 Last Admin: 09/12/19 17:08 Dose: 200 mg Simvastatin (Zocor) 20 mg PO QPM [facility]; Protocol Stop: 11/01/19 16:59 Last Admin: 09/12/19 17:08 Dose: 20 mg Trazodone HCl (Desyrel) 50 mg PO HS [facility]; Protocol Stop: 11/01/19 20:59 Last Admin: 09/11/19 21:04 Dose: 50 mg Zolpidem Tartrate (Ambien) 5 mg PO HS PRN PRN Reason: Insomnia Stop: 10/31/19 22:47 Physical Exam: Patient is irritable, still very dis-oriented, needs close monitoring. General: demented, NAD HEENT: NC/AT, PERRLA Neck: Supple, No JVD Lungs: other (no acute respiratory distress) Cardiovascular: RRR Abdomen: soft, non-tender Extremities: clear Neurological: no change, disorganized Internal Medicine Assmt/Plan - Assessment Assessment: Mentally challenged. S/p fall. Severe Lower back pain. Buttock pain. Cardiomegaly. History of Hypertension. - Plan Plan: Continuation of care. Psych consult requested. Monitor vitals, Labs, X-rays. Continue present meds as directed. Monitor diet/nutritional support. Supportive care. Pain management. Fall precaution. Continue present care management. Nutritional Asmnt/Malnutr-PDOC - Dietary Evaluation Malnutrition Findings (Please click <Entered> for more info): Nutritional Asmnt/Malnutrition Start: 09/03/19 12: 44 Text: Status: Complete Freq: Protocol: Document 09/03/19 12:44 BOBBY (Rec: 09/03/19 13:11 BOBBY [email or web address]- [email or web address]) Nutritional Asmnt/Malnutrition Patient General Information Nutritional Screening Moderate Risk Diagnosis Psychosis Pertinent Medical Hx/Surgical Hx Asthma, hyperlipidemia Subjective Information Patient in dining room at time of visit. Tolerating current diet order with adequate intake. Current Diet Order/ Nutrition Support Cardiac, Chopped Patient / S.O Not Indicated Pertinent Medications maalox, colace, imodium, MOM, Theragran, zofran, protonix, phenergan Pertinent Labs (09/01) albumin 3.5 Nutritional Hx/Data Height 1.6 m Height (Calculated Centimeters) 160.0 Current Weight (lbs) 84.822 kg Weight (Calculated Kilograms) 84.8 Weight (Calculated Grams) 16365.8 [place] Body Weight 115 % [place] Body Weight 162 Body Mass Index (BMI) 33.1 Recent Weight Change No Weight Status Obese GI Symptoms GI Symptoms None Last BM 19x 2 Difficult in: None Food Allergies No Cultural/Ethnic/[place] Belief none indicated Usual diet at home unknown Skin Integrity/Comment: Chris 16, superficial laceration.lateral scratches to lower back. Current %PO Good (75-100%) Estimated Nutritional Goals BEE in Kcals: Adj wt of IBW Calories/Kcals/Kg 60.4kg 25-30 kcal/kg Kcals Calculated ~5882-2984 kcal/day Protein: Adj wt of IBW Protein g/kg: (1gm/kg) Protein Calculated ~60 gm/day Fluid: ml ~0103-5027 ml/day (1 ml/kcal) Nutritional Problem No current Nutrition Prob Problem No nutrition diagnosis at this time Intervention/Recommendation Comments 1. Continue Cardiac chopped diet as tolerated by patient. Expected Outcomes/Goals Expected Outcomes/Goals Oral intake >75% ofmeals, weight stable, nutrition related labs WNL F/U LR
--- NOTE | 2019-09-13 00:32 | Progress Notes ---
DATE: 09/12/2019 PSYCHIATRIC PROGRESS NOTE SUBJECTIVE: Staff was spoken to. The patient is interviewed. Mood is noted to be irritable. Affect is constricted. Insight and judgment are noted to be still impaired. Impulse control seems to be improving. Paranoia is noted. The patient has been able to tolerate the Seroquel that is being given 200 mg twice a day and the patient's sleep is noted to be improving. ASSESSMENT: The patient's psychosis is resolving. PLAN: To continue the patient with the supportive therapy, encouraged the patient to verbalize the concerns rather than to act out. JOB# [id number]
[2019-09-13] MEDS: Pantoprazole 40 mg EC Tab PO SCH (06:38)
[2019-09-13] MEDS: Multivitamin Tab PO SCH (08:30)
--- NOTE | 2019-09-13 17:19 | Internal Medicine Prog Note ---
Internal Medicine Subjective - Subjective Service Date: 09/13/19 Patient is:: awake, verbal, in bed, agitated, confused Patient Complaints of:: other (Mentally challenged.) Per staff patient has:: no adverse event, no episodes of fall Internal Medicine Objective - Physical Exam Vitals and I&O: Vital Signs Temp 98.3 F 09/13/19 15:04 Pulse 93 09/13/19 15:04 Resp 18 09/13/19 15:04 BP 125/64 09/13/19 15:04 Pulse Ox 92 09/13/19 15:04 Intake & Output 09/12/19 09/13/19 09/13/19 18:59 06:59 18:59 Intake Total 1500 400 Output Total 1 Balance 1500 399 Intake: Oral 1500 400 Output: Urine/Stool Mix 1 Other: # Voids 5 1 # Bowel Movements 5 0 Active Medications: Current Medications Acetaminophen (Tylenol) 650 mg PO Q4HR PRN PRN Reason: Mild Pain (Scale 1-3) Stop: 10/31/19 22:47 Last Admin: 09/11/19 12:12 Dose: 650 mg Acetaminophen (Tylenol) 650 mg PO Q4H PRN PRN Reason: TEMP ABOVE 100 Stop: 11/01/19 09:21 Last Admin: 09/09/19 11:00 Dose: 650 mg Acetaminophen/Hydrocodone Bitart ([place] 5mg/325mg) 1 tab PO Q6H PRN PRN Reason: Severe Pain Stop: 11/06/19 16:25 Al Hydrox/Mg Hydrox/Simethicone (Maalox) 30 ml PO Q4HR PRN PRN Reason: GI DISTRESS Stop: 10/31/19 22:47 Albuterol Sulfate (Albuterol 2.5mg/3ml Neb Ud) 2.5 mg HHN Q4H PRN PRN Reason: Wheezing Stop: 11/01/19 14:56 Docusate Sodium (Colace) 250 mg PO BID [facility]I Stop: 11/01/19 08:59 Last Admin: 09/13/19 08:30 Dose: 250 mg Guaifenesin/Dextromethorphan (Diabetic Tussin Dm Sugar Free) 10 ml PO Q4HR PRN PRN Reason: Congestion Stop: 10/31/19 23:48 Ibuprofen (Motrin) 600 mg PO TID PRN PRN Reason: BODY ACHES AND HEADACHES Stop: 10/31/19 22:59 Last Admin: 09/13/19 06:12 Dose: 600 mg Loperamide HCl (Imodium) 2 mg PO TID PRN PRN Reason: diarrhea Stop: 11/01/19 05:30 Last Admin: 09/08/19 08:14 Dose: 2 mg Loratadine (Claritin) 10 mg PO DAILY [facility] Stop: 11/01/19 08:59 Last Admin: 09/13/19 08:30 Dose: 10 mg Lorazepam (Ativan) 0.5 mg PO Q4HR PRN; Protocol PRN Reason: Anxiety Stop: 10/01/19 22:47 Last Admin: 09/08/19 07:51 Dose: 0.5 mg Magnesium Hydroxide (Milk Of Magnesia) 30 ml PO HS PRN PRN Reason: Constipation Multivitamins/Vitamin C (Theragran) 1 tab PO DAILY [facility] Stop: 11/01/19 08:59 Last Admin: 09/13/19 08:30 Dose: 1 tab Nystatin (Nystop) 0 units TP BID [facility] Stop: 11/12/19 16:59 Ondansetron HCl (Zofran Odt) 8 mg PO Q6H PRN PRN Reason: IF COMPAZINE INEFFECTIVE Oxybutynin Chloride (Ditropan) 5 mg PO BID [facility] Stop: 11/01/19 08:59 Last Admin: 09/13/19 08:30 Dose: 5 mg Pantoprazole Sodium (Protonix) 40 mg PO QDAC [facility] Stop: 11/01/19 07:29 Last Admin: 09/13/19 06:38 Dose: 40 mg Prochlorperazine Maleate (Compazine) 5 mg PO TID PRN PRN Reason: Nausea / Vomiting Promethazine HCl/Dextromethorphan (Phenergan Dm 6.25/15mg-5 Ml) 5 ml PO QID PRN PRN Reason: Cough Stop: 10/31/19 23:48 Pseudoephedrine HCl (Sudafed) 30 mg PO TID PRN PRN Reason: Cold Symptons (nasal congest.) Quetiapine Fumarate (Seroquel) 200 mg PO BID [facility]; Protocol Stop: 11/01/19 08:59 Last Admin: 09/13/19 08:30 Dose: 200 mg Simvastatin (Zocor) 20 mg PO QPM [facility]; Protocol Stop: 11/01/19 16:59 Last Admin: 09/12/19 17:08 Dose: 20 mg Trazodone HCl (Desyrel) 50 mg PO HS [facility]; Protocol Stop: 11/01/19 20:59 Last Admin: 09/12/19 21:34 Dose: 50 mg Zolpidem Tartrate (Ambien) 5 mg PO HS PRN PRN Reason: Insomnia Stop: 10/31/19 22:47 General: demented, NAD HEENT: NC/AT, PERRLA Neck: Supple, No JVD Lungs: other (no acute respiratory distress) Cardiovascular: RRR Abdomen: soft, non-tender Extremities: clear Neurological: no change, disorganized Internal Medicine Assmt/Plan - Assessment Assessment: Mentally challenged. S/p fall. Severe Lower back pain. Buttock pain. Cardiomegaly. History of Hypertension. - Plan Plan: Continuation of care. Psych consult requested. Monitor vitals, Labs, X-rays. Continue present meds as directed. Monitor diet/nutritional support. Supportive care. Pain management. Fall precaution. Continue current treatment plan as ordered. Nutritional Asmnt/Malnutr-PDOC - Dietary Evaluation Malnutrition Findings (Please click <Entered> for more info): Nutritional Asmnt/Malnutrition Start: 09/03/19 12: 44 Text: Status: Complete Freq: Protocol: Document 09/03/19 12:44 BOBBY (Rec: 09/03/19 13:11 BOBBY [email or web address]- [email or web address]) Nutritional Asmnt/Malnutrition Patient General Information Nutritional Screening Moderate Risk Diagnosis Psychosis Pertinent Medical Hx/Surgical Hx Asthma, hyperlipidemia Subjective Information Patient in dining room at time of visit. Tolerating current diet order with adequate intake. Current Diet Order/ Nutrition Support Cardiac, Chopped Patient / S.O Not Indicated Pertinent Medications maalox, colace, imodium, MOM, Theragran, zofran, protonix, phenergan Pertinent Labs (09/01) albumin 3.5 Nutritional Hx/Data Height 5 ft 3 in Height (Calculated Centimeters) 160.0 Current Weight (lbs) 187 lb Weight (Calculated Kilograms) 84.8 Weight (Calculated Grams) 33298.8 [place] Body Weight 115 % [place] Body Weight 162 Body Mass Index (BMI) 33.1 Recent Weight Change No Weight Status Obese GI Symptoms GI Symptoms None Last BM 19x 2 Difficult in: None Food Allergies No Cultural/Ethnic/Latter-Day Belief none indicated Usual diet at home unknown Skin Integrity/Comment: Chris 16, superficial laceration.lateral scratches to lower back. Current %PO Good (75-100%) Estimated Nutritional Goals BEE in Kcals: Adj wt of IBW Calories/Kcals/Kg 60.4kg 25-30 kcal/kg Kcals Calculated ~2981-5946 kcal/day Protein: Adj wt of IBW Protein g/kg: (1gm/kg) Protein Calculated ~60 gm/day Fluid: ml ~2784-7026 ml/day (1 ml/kcal) Nutritional Problem No current Nutrition Prob Problem No nutrition diagnosis at this time Intervention/Recommendation Comments 1. Continue Cardiac chopped diet as tolerated by patient. Expected Outcomes/Goals Expected Outcomes/Goals Oral intake >75% ofmeals, weight stable, nutrition related labs WNL F/U LR
[2019-09-13] MEDS: NYSTATIN 100000 UNITS/GM POWD TP SCH (17:37)
--- NOTE | 2019-09-13 21:00 | Progress Notes ---
DATE: 09/13/2019 PSYCHIATRIC PROGRESS NOTE SUBJECTIVE: Staff was spoken to. The patient is interviewed. Mood is noted to be dysphoric. Affect is constricted. The patient's insight and judgment are noted to be still impaired. Impulse control is noted to be limited. No side effects to the medications are noted. The patient is stating that she has been trying to deal with the pain at this time. ASSESSMENT: The patient's paranoia is resolving. PLAN: To continue the patient with the current medications. I encouraged the patient to verbalize the concerns rather than to act out. JOB# [id number]
[2019-09-14] MEDS: Pantoprazole 40 mg EC Tab PO SCH (06:41)
[2019-09-14] MEDS: Multivitamin Tab PO SCH (09:21)
[2019-09-14] MEDS: NYSTATIN 100000 UNITS/GM POWD TP SCH ×2 (10:00→18:00)
--- NOTE | 2019-09-14 10:34 | Internal Medicine Prog Note ---
Internal Medicine Subjective - Subjective Service Date: 09/14/19 Patient seen and examined:: with staff Patient is:: awake, verbal, in bed, agitated, confused Patient Complaints of:: other (Mentally challenged.) Per staff patient has:: no adverse event, no episodes of fall Internal Medicine Objective - Physical Exam Vitals and I&O: Vital Signs Temp 98.9 F 09/14/19 06:39 Pulse 93 09/14/19 06:39 Resp 19 09/14/19 06:39 BP 132/76 09/14/19 06:39 Pulse Ox 92 09/14/19 06:39 Intake & Output 09/13/19 09/14/19 09/14/19 18:59 06:59 18:59 Intake Total 120 Balance 120 Intake: Oral 120 Other: # Voids 3 # Bowel Movements 0 Active Medications: Current Medications Acetaminophen (Tylenol) 650 mg PO Q4HR PRN PRN Reason: Mild Pain (Scale 1-3) Stop: 10/31/19 22:47 Last Admin: 09/11/19 12:12 Dose: 650 mg Acetaminophen (Tylenol) 650 mg PO Q4H PRN PRN Reason: TEMP ABOVE 100 Stop: 11/01/19 09:21 Last Admin: 09/09/19 11:00 Dose: 650 mg Acetaminophen/Hydrocodone Bitart ([place] 5mg/325mg) 1 tab PO Q6H PRN PRN Reason: Severe Pain Stop: 11/06/19 16:25 Al Hydrox/Mg Hydrox/Simethicone (Maalox) 30 ml PO Q4HR PRN PRN Reason: GI DISTRESS Stop: 10/31/19 22:47 Albuterol Sulfate (Albuterol 2.5mg/3ml Neb Ud) 2.5 mg HHN Q4H PRN PRN Reason: Wheezing Stop: 11/01/19 14:56 Docusate Sodium (Colace) 250 mg PO BID YAMINI Stop: 11/01/19 08:59 Last Admin: 09/14/19 09:21 Dose: 250 mg Guaifenesin/Dextromethorphan (Diabetic Tussin Dm Sugar Free) 10 ml PO Q4HR PRN PRN Reason: Congestion Stop: 10/31/19 23:48 Ibuprofen (Motrin) 600 mg PO TID PRN PRN Reason: BODY ACHES AND HEADACHES Stop: 10/31/19 22:59 Last Admin: 09/13/19 06:12 Dose: 600 mg Loperamide HCl (Imodium) 2 mg PO TID PRN PRN Reason: diarrhea Stop: 11/01/19 05:30 Last Admin: 09/08/19 08:14 Dose: 2 mg Loratadine (Claritin) 10 mg PO DAILY YAMINI Stop: 11/01/19 08:59 Last Admin: 09/14/19 09:21 Dose: 10 mg Lorazepam (Ativan) 0.5 mg PO Q4HR PRN; Protocol PRN Reason: Anxiety Stop: 10/01/19 22:47 Last Admin: 09/08/19 07:51 Dose: 0.5 mg Magnesium Hydroxide (Milk Of Magnesia) 30 ml PO HS PRN PRN Reason: Constipation Multivitamins/Vitamin C (Theragran) 1 tab PO DAILY YAMINI Stop: 11/01/19 08:59 Last Admin: 09/14/19 09:21 Dose: 1 tab Nystatin (Nystop) 0 units TP BID YAMINI Stop: 11/12/19 16:59 Last Admin: 09/13/19 17:37 Dose: 100 units Ondansetron HCl (Zofran Odt) 8 mg PO Q6H PRN PRN Reason: IF COMPAZINE INEFFECTIVE Oxybutynin Chloride (Ditropan) 5 mg PO BID YAMINI Stop: 11/01/19 08:59 Last Admin: 09/14/19 09:21 Dose: 5 mg Pantoprazole Sodium (Protonix) 40 mg PO QDAC YAMINI Stop: 11/01/19 07:29 Last Admin: 09/14/19 06:41 Dose: 40 mg Prochlorperazine Maleate (Compazine) 5 mg PO TID PRN PRN Reason: Nausea / Vomiting Promethazine HCl/Dextromethorphan (Phenergan Dm 6.25/15mg-5 Ml) 5 ml PO QID PRN PRN Reason: Cough Stop: 10/31/19 23:48 Pseudoephedrine HCl (Sudafed) 30 mg PO TID PRN PRN Reason: Cold Symptons (nasal congest.) Quetiapine Fumarate (Seroquel) 200 mg PO BID YAMINI; Protocol Stop: 11/01/19 08:59 Last Admin: 09/14/19 09:21 Dose: 200 mg Simvastatin (Zocor) 20 mg PO QPM YAMINI; Protocol Stop: 11/01/19 16:59 Last Admin: 09/13/19 17:37 Dose: 20 mg Trazodone HCl (Desyrel) 50 mg PO HS YAMINI; Protocol Stop: 11/01/19 20:59 Last Admin: 09/13/19 21:13 Dose: 50 mg Zolpidem Tartrate (Ambien) 5 mg PO HS PRN PRN Reason: Insomnia Stop: 10/31/19 22:47 Physical Exam: Patient is less irritable, complains of pain, we will continue to monitor patient. General: demented, NAD HEENT: NC/AT, PERRLA Neck: Supple, No JVD Lungs: other (no acute respiratory distress) Cardiovascular: RRR Abdomen: soft, non-tender Extremities: clear Neurological: no change, disorganized Internal Medicine Assmt/Plan - Assessment Assessment: Mentally challenged. S/p fall. Severe Lower back pain. Buttock pain. Cardiomegaly. History of Hypertension. - Plan Plan: Continuation of care. Psych consult requested. Monitor vitals, Labs, X-rays. Continue present meds as directed. Monitor diet/nutritional support. Supportive care. Pain management. Fall precaution. Continue present care management. Nutritional Asmnt/Malnutr-PDOC - Dietary Evaluation Malnutrition Findings (Please click <Entered> for more info): Nutritional Asmnt/Malnutrition Start: 09/03/19 12: 44 Text: Status: Complete Freq: Protocol: Document 09/03/19 12:44 BOBBY (Rec: 09/03/19 13:11 BOBBY [email or web address] [id number]) Nutritional Asmnt/Malnutrition Patient General Information Nutritional Screening Moderate Risk Diagnosis Psychosis Pertinent Medical Hx/Surgical Hx Asthma, hyperlipidemia Subjective Information Patient in dining room at time of visit. Tolerating current diet order with adequate intake. Current Diet Order/ Nutrition Support Cardiac, Chopped Patient / S.O Not Indicated Pertinent Medications maalox, colace, imodium, MOM, Theragran, zofran, protonix, phenergan Pertinent Labs (09/01) albumin 3.5 Nutritional Hx/Data Height 1.6 m Height (Calculated Centimeters) 160.0 Current Weight (lbs) 84.822 kg Weight (Calculated Kilograms) 84.8 Weight (Calculated Grams) 04678.8 [place] Body Weight 115 % [place] Body Weight 162 Body Mass Index (BMI) 33.1 Recent Weight Change No Weight Status Obese GI Symptoms GI Symptoms None Last BM 09/03x 2 Difficult in: None Food Allergies No Cultural/Ethnic/Rastafarian Belief none indicated Usual diet at home unknown Skin Integrity/Comment: Chris 16, superficial laceration.lateral scratches to lower back. Current %PO Good (75-100%) Estimated Nutritional Goals BEE in Kcals: Adj wt of IBW Calories/Kcals/Kg 60.4kg 25-30 kcal/kg Kcals Calculated ~0658-0237 kcal/day Protein: Adj wt of IBW Protein g/kg: (1gm/kg) Protein Calculated ~60 gm/day Fluid: ml ~1195-2557 ml/day (1 ml/kcal) Nutritional Problem No current Nutrition Prob Problem No nutrition diagnosis at this time Intervention/Recommendation Comments 1. Continue Cardiac chopped diet as tolerated by patient. Expected Outcomes/Goals Expected Outcomes/Goals Oral intake >75% ofmeals, weight stable, nutrition related labs WNL F/U LR
--- NOTE | 2019-09-15 05:37 | Progress Notes ---
DATE: 09/14/2019 PSYCHIATRIC PROGRESS NOTE SUBJECTIVE: Staff was spoken to. The patient is interviewed. Mood is noted to be less irritable. Affect is appropriate. Insight and judgment are noted to be improving. Impulse control seems to be fair except for the patient's complaint that she is having pain. No other side effects to the medications are noted at this time. The patient is being cared for her wound. ASSESSMENT: The patient is having paranoia, but not presenting with any threats to harm self or others. PLAN: To continue the patient with the current medications and work with the case advocate with regards to placement of this patient. JOB# [id number]
[2019-09-15] MEDS: Pantoprazole 40 mg EC Tab PO SCH (06:44)
[2019-09-15] MEDS: NYSTATIN 100000 UNITS/GM POWD TP SCH (09:53)
[2019-09-15] MEDS: Multivitamin Tab PO SCH (09:55)
--- NOTE | 2019-09-15 21:10 | Discharge Summary ---
DATE OF DISCHARGE: 09/15/2019 IDENTIFYING DATA: The patient is a 53-year-old woman, resident of a [facility]. JUSTIFICATION OF HOSPITALIZATION: The patient is admitted on a voluntary basis in view of her acute agitation and aggressive behavior. DIAGNOSES AT THE TIME OF ADMISSION: AXIS I: Unspecified psychosis. AXIS II: None. AXIS III: As per Dr. Phillips. HISTORY OF PRESENT ILLNESS: Please refer to 09/02/2019 dictation done by me. Physical examination was done by Dr. Phillips. HOSPITAL COURSE AND RESPONSE TO TREATMENT: The patient has been placed on the Seroquel that was given 200 mg twice a day and the patient has been taken off of her Zoloft and has been given the 50 mg of the trazodone. Then with these medications, the patient's screaming and yelling has calmed down. The patient was noted to be doing fairly well. The patient's major concern happened to be her pain and the patient was not noted to be a danger to self or others at the time of the evaluation and the patient was finally discharged on 09/15/2019 with recommendation that she is going to be seeking treatment on an outpatient basis. MENTAL STATUS EXAMINATION: At the time of the discharge, the patient noted to be anxious. Affect is appropriate. Not suicidal or homicidal. Insight and judgment are noted to be fair. Impulse control is noted to be fair. No side effects to the medications are noted. ASSESSMENT: The patient is stabilizing and at the time of discharge not noted to be a danger to self or others. DIAGNOSES AT THE TIME OF DISCHARGE: AXIS I: Psychotic disorder, not otherwise specified. AXIS II: None. AXIS III: As per Dr. Phillips, history of asthma. AFTERCARE PLAN: The patient is discharged to [facility] to be followed up on an outpatient basis. JOB# [id number]
== END 2019-09-15 14:15 | DRG 885 ==
LOC: GERO 18:20
PROVIDERS: ADMIT Psychiatry & Neurology Psychiatry; ATTEND Psychiatry & Neurology Psychiatry
DX: F25.9 Schizoaffective disorder, unspecified (principal); F29 Unspecified psychosis not due to a substance or known physiological condition; F42.9 Obsessive-compulsive disorder, unspecified; M54.5 Low back pain; I11.9 Hypertensive heart disease without heart failure; J45.909 Unspecified asthma, uncomplicated; E78.5 Hyperlipidemia, unspecified; E66.9 Obesity, unspecified; Z68.33 Body mass index [BMI] 33.0-33.9, adult; Z91.81 History of falling
CPT/HCPCS: 83036-90; 90899; G0410; Q0164; Z7610